=== PATIENT | male | born 1985 | race Caucasian/White ===

== ENCOUNTER 2016-12-08 19:02 | Emergency (ER) | payer BC ==
[2016-12-08 19:11] VITALS: BP 158/89; PULSE 61; RESP 18; TEMP 97.9
--- NOTE | 2016-12-08 20:08 | XR ---
EXAMINATION TYPE: XR hand complete LT DATE OF EXAM: 12/08/2016 7:41 PM COMPARISON: NONE HISTORY: Struck left thumb with a hammer today TECHNIQUE: 3 views FINDINGS: Bones and joints and soft tissues are remarkable only for soft tissue swelling. IMPRESSION: Negative for fracture or malalignment, or radiopaque foreign body
--- NOTE | 2016-12-08 20:37 | ED ---
General Adult HPI - General Chief complaint: Extremity Injury, Upper Stated complaint: Thumb Pain/Injury Time Seen by Provider: 12/08/16 19:27 Source: patient, RN notes reviewed Mode of arrival: ambulatory Limitations: no limitations - History of Present Illness Initial comments: This is a 31-year-old male presents with left thumb pain after hitting it with a hammer today at home. Patient states he noticed pain over the MCP joint of the left thumb. Patient denies any laceration or bruising. Patient states difficult to move the thumb due to pain. Patient denies any numbness/tingling or weakness. Patient denies any recent fever, chills, shortness breath, chest pain, abdominal pain, nausea/vomiting/diarrhea, back pain, hematuria, headache , or visual changes, or any other complaints. - Related Data Home Medications Medication Instructions Recorded Confirmed No Known Home Medications [No 02/15/16 12/08/16 Known Home Medications] Allergies Allergy/AdvReac Type Severity Reaction Status Date / Time codeine Allergy Unknown Verified 12/08/16 19:36 Childhood Review of Systems ROS Statement: Those systems with pertinent positive or pertinent negative responses have been documented in the HPI. ROS Other: All systems not noted in ROS Statement are negative. Past Medical History Past Medical History: No Reported History History of Any Multi-Drug Resistant Organisms: None Reported Past Surgical History: Appendectomy Past Psychological History: Anxiety Smoking Status: Current every day smoker Past Alcohol Use History: Rare Past Drug Use History: None Reported General Exam - General Exam Comments Initial Comments: General: The patient is awake and alert, in no distress, and does not appear acutely ill. Neck: The neck is supple, there is no tenderness or JVD. Cardiovascular: There is a regular rate and rhythm. No murmur, rub or gallop is appreciated. Respiratory: Lungs are clear to auscultation, respirations are non-labored, breath sounds are equal. No wheezes, stridor, rales, or rhonchi. Musculoskeletal: There is tenderness over the MCP joint of the first digit of the left hand. Limited range of motion at the left MCP joint of the first digit due to pain. No ecchymosis, mild swelling around the MCP joint of the first digit of the left hand. There is no tenderness of the left wrist. No subungual hematoma. Strength 5/5 and Sensation intact. Pulses 2+ bilaterally, capillary refill is normal at less than 2 seconds. No tenderness in the anatomical snuffbox. Neurological: A&O x 3. CN II-XII intact, There are no obvious motor or sensory deficits. Coordination appears grossly intact. Speech is normal. Skin: Skin is warm and dry and no rashes or lesions are noted. Psychiatric: Normal mood and affect. Limitations: no limitations Course Vital Signs 12/08/16 19:07 Temperature 97.9 F Pulse Rate 61 Respiratory 18 Rate Blood Pressure 158/89 O2 Sat by Pulse 99 Oximetry Medical Decision Making - Medical Decision Making This is a 31-year-old male presents with left thumb pain after hitting his hand with a hammer. On physical exam There is tenderness over the MCP joint of the first digit of the left hand. Limited range of motion at the left MCP joint of the first digit due to pain. No ecchymosis, mild swelling around the MCP joint of the first digit of the left hand. There is no tenderness of the left wrist. No subungual hematoma. Strength 5/5 and Sensation intact. Pulses 2+ bilaterally, capillary refill is normal at less than 2 seconds. An x-ray of the left hand was done and reviewed showing: Negative for fracture or malalignment, or radiopaque foreign body. Reported by Dr. Wang. I discussed results with patient and his who was also present in the room. Discussed rest, ice, elevate and use Bruno wrap for compression. I discussed over -the-counter Tylenol and or Motrin as needed for any pain. I discussed If symptoms do not improve in the next 7 days repeat x-rays may be needed to rule out occult fracture. I discussed return parameters. Discussed follow-up with the patient's primary care physician in the next 1-2 days or return to the [facility] for any worsening symptoms or for any further concerns. All questions were answered. Patient and his were receptive to this plan and patient will be discharged home. Disposition Clinical Impression: Contusion of thumb, left Disposition: HOME SELF-CARE Condition: Good Instructions: Hand Sprain (ED) Additional Instructions: Please rest, ice, elevate and use Bruno wrap for compression. Please use over-the -counter Tylenol and/or Motrin as needed for any pain. If symptoms do not improve in the next 7 days repeat x-rays may be needed to rule out occult fracture. Please use medication as discussed. Please follow-up with family doctor in the next 2 days of symptoms have not improved. Please return to emergency room if the symptoms increase or worsen or for any other concerns. Time of Disposition: 20:40
== END 2016-12-08 20:46 | disposition home or self-care (01) ==
LOC: EC 19:02
DX: S63.602A Unspecified sprain of left thumb, initial encounter (principal); F17.200 Nicotine dependence, unspecified, uncomplicated; Z88.5 Allergy status to narcotic agent; W22.8XXA Striking against or struck by other objects, initial encounter
CPT/HCPCS: 99283

== ENCOUNTER 2018-03-07 10:05 | Emergency (ER) | payer BC ==
[2018-03-07 10:16] VITALS: RESP 18
--- NOTE | 2018-03-07 10:29 | XR ---
EXAMINATION TYPE: XR chest 2V DATE OF EXAM: 03/07/2018 COMPARISON: Chest x-ray January 19, 2014 HISTORY: Cough and congestion for one week. TECHNIQUE: Frontal and lateral views of the chest are obtained. FINDINGS: There is no focal air space opacity, pleural effusion, or pneumothorax seen. The cardiac silhouette size is within normal limits. The osseous structures are intact. IMPRESSION: No suspicious acute infiltrate. No significant change from prior.
[2018-03-07] MEDS ORDERED: KETOROLAC 60 MG/2 ML VIAL IM STA (10:32)
[2018-03-07] MEDS ORDERED: IPRATROPIUM-ALBUTEROL 3 ML NEB INHALATION STA (10:32)
--- NOTE | 2018-03-07 10:38 | ED ---
General Adult HPI - General Chief complaint: Upper Respiratory Infection Stated complaint: Diff Breathing Time Seen by Provider: 03/07/18 10:05 Source: patient, RN notes reviewed Mode of arrival: wheelchair Limitations: no limitations - History of Present Illness Initial comments: This is a 33-year-old male who presents emergency department stating that he has had upper respiratory infection since last and now is coughing a lot but not producing any sputum. Patient states she's also short of breath. Patient states she's coughing and causing some pain in his back bilaterally. Patient denies any fever chills. Patient states she is a smoker. Patient states he has no anterior chest pain or palpitations. Patient denies any lightheadedness or dizziness. Patient denies any headache patient denies numbness weakness. Patient denies abdominal pain patient denies nausea vomiting or diarrhea. - Related Data Home Medications Medication Instructions Recorded Confirmed Acetaminophen/Diphenhydramine 2 tab PO HS PRN 03/07/18 03/07/18 [Tylenol PM 500-25mg] diphenhydrAMINE HCL [Benadryl] 25 mg PO HS PRN 03/07/18 03/07/18 Previous Rx's Medication Instructions Recorded Albuterol Inhaler [Ventolin Hfa 1 - 2 puff INHALATION Q6HR PRN #2 03/07/18 Inhaler] puff Azithromycin [Zithromax Tri-Mike] 500 mg PO DAILY #3 tab 03/07/18 Ibuprofen [Motrin] 600 mg PO Q6HR PRN #20 tab 03/07/18 Allergies Allergy/AdvReac Type Severity Reaction Status Date / Time codeine Allergy Unknown Verified 03/07/18 10:42 Childhood Review of Systems ROS Statement: Those systems with pertinent positive or pertinent negative responses have been documented in the HPI. ROS Other: All systems not noted in ROS Statement are negative. Past Medical History Past Medical History: No Reported History History of Any Multi-Drug Resistant Organisms: None Reported Past Surgical History: Appendectomy Past Psychological History: Anxiety Smoking Status: Current every day smoker Past Alcohol Use History: Rare Past Drug Use History: None Reported General Exam - General Exam Comments Initial Comments: GENERAL: Patient is well-developed and well-nourished. Patient is nontoxic and well- hydrated and is in mild distress. ENT: Neck is soft and supple. No significant lymphadenopathy is noted. Oropharynx is clear. Moist mucous membranes. Neck has full range of motion without eliciting any pain. EYES: The sclera were anicteric and conjunctiva were pink and moist. Extraocular movements were intact and pupils were equal round and reactive to light. Eyelids were unremarkable. PULMONARY: Extra wheezing diffusely CARDIOVASCULAR: There is a regular rate and rhythm without any murmurs gallops or rubs. ABDOMEN: Soft and nontender with normal bowel sounds. SKIN: Skin is clear with no lesions or rashes and otherwise unremarkable. NEUROLOGIC: Patient is alert and oriented x3. Cranial nerves II through XII are grossly intact. Motor and sensory are also intact. Normal speech, volume and content. Symmetrical smile. MUSCULOSKELETAL: Normal extremities with adequate strength and full range of motion. LYMPHATICS: No significant lymphadenopathy is noted PSYCHIATRIC: Normal psychiatric evaluation. Limitations: no limitations Course Vital Signs 03/07/18 03/07/18 03/07/18 10:14 10:53 11:03 Temperature 98.9 F Pulse Rate 77 76 80 Respiratory 18 Rate Blood Pressure 132/75 O2 Sat by Pulse 97 Oximetry Medical Decision Making - Medical Decision Making Chest shows no acute abnormality. I gave the patient an albuterol treatment in emergency. He felt considerably better. Patient sounded like he was having bronchitis with bronchospasms psychiatric the shot of Rocephin as well and Toradol. Patient states the Toradol really helped his back pain with his coughing. Disposition Clinical Impression: Bronchitis with bronchospasm Disposition: HOME SELF-CARE Condition: Good Instructions: Acute Bronchitis (ED) Prescriptions: Albuterol Inhaler [Ventolin Hfa Inhaler] 1 - 2 puff INHALATION Q6HR PRN #2 puff PRN Reason: Difficulty breathing Azithromycin [Zithromax Tri-Mike] 500 mg PO DAILY #3 tab Ibuprofen [Motrin] 600 mg PO Q6HR PRN #20 tab PRN Reason: For pain Is patient prescribed a controlled substance at d/c from ED?: No Referrals: Bhargav Sosa DO [Primary Care Provider] - 1-2 days Time of Disposition: 11:23
[2018-03-07] MEDS ORDERED: cefTRIAXone 250 MG VIAL IM STA (10:56)
[2018-03-07 12:04] VITALS: BP 129/77; PULSE 85; TEMP 98.7
== END 2018-03-07 12:00 | disposition home or self-care (01) ==
LOC: EC 10:05
DX: J40 Bronchitis, not specified as acute or chronic (principal); J98.01 Acute bronchospasm; F17.200 Nicotine dependence, unspecified, uncomplicated; Z88.5 Allergy status to narcotic agent
CPT/HCPCS: 99283; 96372 ×2; 94640; 71046; J0696; J1885

== ENCOUNTER 2018-09-16 20:50 | Emergency (ER) | payer BC, OTHER ==
[2018-09-16 20:57] VITALS: BP 123/80; PULSE 70; RESP 18; TEMP 97.9
[2018-09-16] MEDS ORDERED: KETOROLAC 30 MG/ML 1 ML VIAL IM STA (21:10)
--- NOTE | 2018-09-16 21:54 | ED ---
Extremity Problem HPI - General Source: patient Mode of arrival: ambulatory Limitations: no limitations <Capri Manning - Last Filed: 09/17/18 00:50> <Lu Escamilla - Last Filed: 09/17/18 02:21> - General Chief complaint: Extremity Problem,Nontraumatic Stated complaint: swollen hand Time Seen by Provider: 09/16/18 20:54 - History of Present Illness Initial comments: 33-year-old male presenting today for chief complaint of left wrist pain x 2 weeks. Patient states left wrist pain began 2 weeks ago felt a hard bump on his ventral surface of the wrist near the base of the thumb. Patient denies any injury, cuts, penetration of the area. 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 She denies any redness, swelling of the hand or arm. Pt states that the wrist is tender with ROM. Pt denies, fever, chills, night sweats. Remainder of ROS (-). Upon arrival pt appears well VS within acceptable limits. (Capri Manning) - Related Data Home Medications Medication Instructions Recorded Confirmed No Known Home Medications 09/16/18 09/16/18 Allergies Allergy/AdvReac Type Severity Reaction Status Date / Time codeine Allergy Unknown Verified 03/07/18 10:42 Childhood Review of Systems ROS Other: All systems not noted in ROS Statement are negative. Constitutional: Denies: fever, chills, night sweats ENT: Denies: ear pain, throat pain Respiratory: Denies: wheezes, hemoptysis, stridor Cardiovascular: Denies: chest pain, palpitations Endocrine: Denies: fatigue Gastrointestinal: Denies: abdominal pain, nausea, vomiting Genitourinary: Denies: urgency, dysuria Musculoskeletal: Reports: arthralgia (left wrist pain). Denies: back pain Skin: Denies: rash, lesions, change in color, pruritus <Capri Manning - Last Filed: 09/17/18 00:50> ROS Other: All systems not noted in ROS Statement are negative. <Lu Escamilla - Last Filed: 09/17/18 02:21> ROS Statement: Those systems with pertinent positive or pertinent negative responses have been documented in the HPI. Past Medical History Past Medical History: No Reported History History of Any Multi-Drug Resistant Organisms: None Reported Past Surgical History: Appendectomy Past Psychological History: Anxiety Smoking Status: Current every day smoker Past Alcohol Use History: Rare Past Drug Use History: None Reported <Capri Manning - Last Filed: 09/17/18 00:50> General Exam Limitations: no limitations <Capri Manning - Last Filed: 09/17/18 00:50> <Lu Escamilla P - Last Filed: 09/17/18 02:21> - General Exam Comments Initial Comments: General: The patient is awake and alert, in no distress, and does not appear acutely ill. Eye: +3 mm pupils are equal, round and reactive to light, extra-ocular movements are intact. No nystagmus. There is normal conjunctiva bilaterally. No signs of icterus. Ears, nose, mouth and throat: There are moist mucous membranes and no oral lesions. Neck: The neck is supple, there is no tenderness or JVD. Cardiovascular: There is a regular rate and rhythm. No murmur, rub or gallop is appreciated. Respiratory: Lungs are clear to auscultation, respirations are non-labored, breath sounds are equal. No wheezes, stridor, rales, or rhonchi. Musculoskeletal: Small hard raised area on the ventral surface of left wrist, no palpable fluctuance, area is tender to palpation and non erythematous. No obvious deformities. No swelling noted of the hands/UE the inspection is equally b/l. Normal ROM of the wrist b/l with flexion/extension/ulnar and radial deviation, pt complains of pain with all movements. (+) Terrie Strength 5/5. Sensation intact, pt is able to make the ok, fingers crossed, thumbs up and flex at the wrist. Radial and ulnar pulses equal bilaterally 2+. No snuffbox tenderness. Neurological: A&O x 3. CN II-XII intact, There are no obvious motor or sensory deficits. Coordination appears grossly intact. Speech is normal. Skin: Skin is warm and dry and no rashes or lesions are noted. No redness/ abscess. Psychiatric: Cooperative, appropriate mood & affect, normal judgment. (Capri Manning Maria Eugenia) Vital Signs 09/16/18 20:53 Temperature 97.9 F Pulse Rate 70 Respiratory 18 Rate Blood Pressure 123/80 O2 Sat by Pulse 97 Oximetry Medical Decision Making <Capri Manning - Last Filed: 09/17/18 00:50> <Lu Escamilla - Last Filed: 09/17/18 02:21> - Medical Decision Making 33yo with atraumatic left wrist pain and palpable mass. US obtained revealing cyst of the ventral surface of the left wrist-performed bedside by Dr. Rodríguez. Does not appear consistent with an infectious abscess or lesion more so with ganglion cyst. PE unremarkable aside from tenderness to palpation, no redness, fluctuance or warmth. Pt neurovascularly intact no pain along the deep venous system. At this time I feel pt symptoms due to ganglion cyst. Pt was given instruction to use ibuprofen and tylenol for pain mgmt and f/u with orthopedic surgery. Case is discussed with Dr. Escamilla who agreed to impression and plan. Return parameters were discussed at length with the patient. Patient verbalizes understanding. Patient was discharged in stable condition. (Capri Manning) I was available for consultation in the emergency department. The history and physical exam were done by the midlevel provider. I was consulted for this patient's care. I reviewed the case with the midlevel provider and based on their presentation of the patient, I agree with the assessment, medical decision making and plan of care as documented. (Lu Escamilla) Disposition Is patient prescribed a controlled substance at d/c from ED?: No Time of Disposition: 21:56 <Capri Manning - Last Filed: 09/17/18 00:50> <Lu Escamilla - Last Filed: 09/17/18 02:21> Clinical Impression: Ganglion cyst, Left wrist pain Disposition: HOME SELF-CARE Condition: Good Instructions: Ganglion Cysts (ED) Additional Instructions: Please use over the counter pain medication as discussed. Please follow-up with family doctor in the next 2 days, please seek orthopedic surgery evaluation in next 2-3 days. Please return to emergency room if the symptoms increase or worsen or for any other concerns, as discussed. Referrals: Bhargav Sosa DO [Primary Care Provider] - 1-2 days Erasmo Roberts DO [Doctor of Osteopathic Medicine] - 1-2 days
== END 2018-09-16 22:11 | disposition home or self-care (01) ==
LOC: EC 20:50
DX: M67.432 Ganglion, left wrist (principal); F17.200 Nicotine dependence, unspecified, uncomplicated; Z88.5 Allergy status to narcotic agent
CPT/HCPCS: 99283; 96372; J1885

== ENCOUNTER 2018-10-30 10:36 | Emergency (ER) | payer BC, OTHER ==
[2018-10-30 10:50] VITALS: RESP 18
[2018-10-30] MEDS ORDERED: SODIUM CHLORIDE 0.9% 1,000 ML IV STA (11:46)
[2018-10-30] MEDS ORDERED: AMPICILLIN-SULBACTAM 3 GM in SODIUM CHLORIDE 0.9% 100 ML IVPB STA (11:49)
--- NOTE | 2018-10-30 11:52 | ED ---
General Adult HPI - General Chief complaint: Dental/Oral Stated complaint: dental abscess Source: patient, RN notes reviewed, old records reviewed Mode of arrival: ambulatory Limitations: no limitations - History of Present Illness Initial comments: 33-year-old male patient past medical history of poor dentition presents to ED with 2 days of right upper tooth pain, 2 days of bilateral facial swelling. Patient reports that he began experiencing tooth pain yesterday. Patient reports that he has had tooth infections in the past. Patient reports that he is unable to see a dentist yesterday due to the holiday. Patient took Motrin for the pain. Patient had a mild amount of facial swelling yesterday. Patient reports that he woke up today and had considerably more facial swelling, bilaterally. Patient denies fever chills, nausea vomiting diarrhea, chest pain , shortness breath, abdominal pain. Systemic: Pt denies fatigue, myalgia, fever/chills, rash. Pt denies weakness, night sweats, weight loss. Neuro: Pt denies headache, visual disturbances, syncope or pre-syncope. HEENT: Patient complains of dental pain, facial swelling. Pt denies ocular discharge or irritation, otalgia, rhinorrhea, pharyngitis or notable lymphadenopathy. Cardiopulmonary: Pt denies chest pain, SOB, heart palpitations, dyspnea on exertion. Abdominal/GI: Pt denies abdominal pain, n/v/d. : Pt denies dysuria, burning w/ urination, frequency/urgency. Denies new onset urinary or bowel incontinence. MSK: Pt denies myalgia, loss of strength or function in extremities. Neuro: Pt denies new onset weakness, paresthesias. - Related Data Home Medications Medication Instructions Recorded Confirmed Ibuprofen [Motrin Ib] 800 mg PO Q6H PRN 10/30/18 10/30/18 Previous Rx's Medication Instructions Recorded Amoxicillin/Potassium Clav 1 each PO Q12HR #20 tab 10/30/18 [Augmentin 875-125 Tablet] Allergies Allergy/AdvReac Type Severity Reaction Status Date / Time codeine Allergy Unknown Verified 10/30/18 12:12 Childhood Review of Systems ROS Statement: Those systems with pertinent positive or pertinent negative responses have been documented in the HPI. ROS Other: All systems not noted in ROS Statement are negative. Past Medical History Past Medical History: No Reported History History of Any Multi-Drug Resistant Organisms: None Reported Past Surgical History: Appendectomy Past Psychological History: Anxiety Smoking Status: Current every day smoker Past Alcohol Use History: Occasional Past Drug Use History: None Reported General Exam - General Exam Comments Initial Comments: Constitutional: NAD, AOX3, Pt has pleasant affect. HEENT: Moderate amount of facial swelling bilaterally, most appriciated in R maxillary area. NC/AT, trachea midline, neck supple, no lymphadenopathy. Posterior pharynx non erythematous, without exudates. External ears appear normal, without discharge. Mucous membranes moist. Eyes PERRLA, EOM intact. There is no scleral icterus. No pallor noted. Tenderness to palpation of teeth # 4,5 - mild amount of erythema, no drainage noted, no abscess. Cardiopulmonary: RRR, no murmurs, rubs or gallops, no JVD noted. Lungs CTAB in anterior and posterior hartley. No peripheral edema. Abdominal exam: Abdomen soft and non-distended. Abdomen non-tender to palpation in all 4 quadrants. Bowel sounds active in LLQ. No hepatosplenomegaly. No ecchymosis Neuro: CN II-XII grossly intact. No nuchal rigidity. MSK: No posterior calf tenderness bilaterally, homans sign negative bilaterally. Posterior tibialis and radial pulse +2 bilaterally. Sensation intact in upper and lower extremities. Full active ROM in upper and lower extremities, 5/5 stregnth. Limitations: no limitations Course Vital Signs 10/30/18 10/30/18 10:47 14:51 Temperature 98.1 F 98.2 F Pulse Rate 74 73 Respiratory 18 18 Rate Blood Pressure 129/84 142/80 O2 Sat by Pulse 97 96 Oximetry Medical Decision Making - Medical Decision Making 33-year-old male patient past medical history of poor dentition presents to ED with 2 days of right upper tooth pain, 2 days of bilateral facial swelling. Patient reports that he began experiencing tooth pain yesterday. Patient reports that he has had tooth infections in the past. Patient reports that he is unable to see a dentist yesterday due to the holiday. Patient took Motrin for the pain. Patient had a mild amount of facial swelling yesterday. Patient reports that he woke up today and had considerably more facial swelling, bilaterally. Patient vital signs stable, afebrile. Physical exam revealed Moderate amount of facial swelling bilaterally, most appriciated in R maxillary area. Tenderness to palpation of teeth #4,5 - mild amount of erythema, no drainage noted, no abscess. A facial CT with contrast displayed a small cell periosteal abscess noted right maxilla with associated right facial soft tissue cellulitis. Patient administered 3 g Unasyn in ED. Patient administered one [place] for analgesic, pt verbalized that he is not driving home. Patient to be discharged with by mouth Augmentin and outpatient follow-up. Patient to follow up with PCP tomorrow. Patient additionally given referral for ENT and to follow up with his primary dentist. Pt verbalized understanding. Pt given strict return precautions. Patient to return to ED if n/v/d, fever/chills develop, if any new symptoms develop, or if condition worsens in anyway. Case discussed and pt seen with Dr. Berrios. - Lab Data Result diagrams: 10/30/18 12:23 10/30/18 12:23 Lab Results 10/30/18 10/30/18 10/30/18 Range/Units 12:23 12:23 12:23 WBC 13.7 H (3.8-10.6) k/uL RBC 5.12 (4.30-5.90) m/uL Hgb 16.9 (13.0-17.5) gm/dL Hct 48.0 (39.0-53.0) % MCV 93.8 (80.0-100.0) fL MCH 33.0 (25.0-35.0) pg MCHC 35.2 (31.0-37.0) g/dL RDW 12.0 (11.5-15.5) % Plt Count 217 (150-450) k/uL Neutrophils % 77 % Lymphocytes % 15 % Monocytes % 5 % Eosinophils % 2 % Basophils % 0 % Neutrophils # 10.5 H (1.3-7.7) k/uL Lymphocytes # 2.1 (1.0-4.8) k/uL Monocytes # 0.7 (0-1.0) k/uL Eosinophils # 0.2 (0-0.7) k/uL Basophils # 0.1 (0-0.2) k/uL Sodium 140 (137-145) mmol/L Potassium 4.4 (3.5-5.1) mmol/L Chloride 108 H (98-107) mmol/L Carbon Dioxide 25 (22-30) mmol/L Anion Gap 7 mmol/L BUN 13 (9-20) mg/dL Creatinine 0.70 (0.66-1.25) mg/dL Est GFR (CKD-EPI)AfAm >90 (>60 ml/min/1.73 sqM) Est GFR (CKD-EPI)NonAf >90 (>60 ml/min/1.73 sqM) Glucose 87 (74-99) mg/dL Plasma Lactic Acid Patrick 1.0 (0.7-2.0) mmol/L Calcium 9.0 (8.4-10.2) mg/dL Total Bilirubin 0.8 (0.2-1.3) mg/dL AST 23 (17-59) U/L ALT 34 (21-72) U/L Alkaline Phosphatase 80 (38-126) U/L Total Protein 6.9 (6.3-8.2) g/dL Albumin 4.0 (3.5-5.0) g/dL Amylase <30 L (30-110) U/L Disposition Clinical Impression: Acute abscess of maxillary sinus Disposition: HOME SELF-CARE Condition: Fair Instructions: Dental Abscess (ED) Additional Instructions: Patient to adhere to previously discussed treatment plan and will take medication(s) as directed. Patient to follow up with PCP in 1-2 days. Patient to return to ED if symptoms do not improve. Prescriptions: Amoxicillin/Potassium Clav [Augmentin 875-125 Tablet] 1 each PO Q12HR #20 tab Is patient prescribed a controlled substance at d/c from ED?: No Referrals: Bhargav Sosa DO [Primary Care Provider] - 1-2 days Eliezer Worrell MD [STAFF PHYSICIAN] - 1-2 days
[2018-10-30 12:39] LABS: Basophils # (A) 0.1 k/uL (0-0.2); Basophils % (A) 0 %; Eosinophils # (A) 0.2 k/uL (0-0.7); Eosinophils % (A) 2 %; HGB 16.9 gm/dL (13.0-17.5); Lymphocytes # (A) 2.1 k/uL (1.0-4.8); Lymphocytes % (A) 15 %; MCHC 35.2 g/dL (31.0-37.0); MCV 93.8 fL (80.0-100.0); Mean Platelet Volume 6.8; Monocytes # (A) 0.7 k/uL (0-1.0); Monocytes % (A) 5 %; Neutrophils # (A) 10.5 k/uL (1.3-7.7); Neutrophils % (A) 77 %; Platelet Count 217 k/uL (150-450); RBC 5.12 m/uL (4.30-5.90); WBC 13.7 k/uL (3.8-10.6)
[2018-10-30 12:45] LABS: ALT 34 U/L (21-72); AST 23 U/L (17-59); Alkaline Phosphatase 80 U/L (38-126); Amylase <30 U/L (30-110); Anion Gap 7 mmol/L; Blood Urea Nitrogen 13 mg/dL (9-20); Carbon Dioxide 25 mmol/L (22-30); Chloride 108 mmol/L (98-107); Glucose 87 mg/dL (74-99); Potassium 4.4 mmol/L (3.5-5.1); Sodium 140 mmol/L (137-145); Total Bilirubin 0.8 mg/dL (0.2-1.3); Total Protein 6.9 g/dL (6.3-8.2)
--- NOTE | 2018-10-30 12:58 | CT ---
EXAMINATION TYPE: CT facial bones w con DATE OF EXAM: 10/30/2018 COMPARISON: None HISTORY: Swelling to Rt side of face, dental abscess CT DLP: 628.2 mGycm Automated exposure control for dose reduction was used. CONTRAST: CT scan of the facial bones is performed with IV Contrast, patient injected with 100 mL of Isovue 300 . TECHNIQUE: CT scan of the sinuses is performed without contrast, axial images are obtained, coronal r eformatted images are also reviewed. FINDINGS: There is extensive right facial soft tissue cellulitis. There is a small subperiosteal abscess noted right maxilla measuring 7.1 mm with small osseous erosion noted. This is in the region of the right f irst upper premolar. No additional abscesses identified. Incidentally there is mild mucosal thickening right maxillary sinus. Osseous structures are otherwise intact. IMPRESSION: 1. Small subperiosteal abscess noted right maxilla as discussed above with associated right facial s oft tissue cellulitis.
[2018-10-30] MEDS ORDERED: KETOROLAC 60 MG/2 ML VIAL IM STA (13:26)
[2018-10-30] MEDS ORDERED: HYDROcodone/APAP 5-325MG 1 EACH TAB PO STA (14:34)
[2018-10-30] MEDS ORDERED: ACET/COD 300 MG/30 MG STARTER PACK 6 TAB BTL PO STA (14:34)
[2018-10-30 14:52] VITALS: BP 142/80; PULSE 73; TEMP 98.2
== END 2018-10-30 14:51 | disposition home or self-care (01) ==
LOC: EC 10:36
DX: J01.00 Acute maxillary sinusitis, unspecified (principal); F17.200 Nicotine dependence, unspecified, uncomplicated; Z88.5 Allergy status to narcotic agent
CPT/HCPCS: 36415; 80053; 82150; 83605; 85025; 87040; 70487; 99284; 96365; 96361; J0295; Q9967

== ENCOUNTER 2019-07-30 19:25 | Emergency (ER) | payer OTHER ==
[2019-07-30 20:39] VITALS: BP 125/84; PULSE 86; RESP 18; TEMP 98.3
--- NOTE | 2019-07-30 21:21 | ED ---
Abdominal Pain HPI - General Chief Complaint: Abdominal Pain Stated Complaint: Chest pain, SOB Time Seen by Provider: 07/30/19 21:20 Source: patient Mode of arrival: ambulatory Limitations: no limitations - Related Data Home Medications Medication Instructions Recorded Confirmed No Known Home Medications 07/30/19 07/30/19 Allergies Allergy/AdvReac Type Severity Reaction Status Date / Time No Known Allergies Allergy Verified 07/30/19 21:04 Review of Systems ROS Statement: Those systems with pertinent positive or pertinent negative responses have been documented in the HPI. ROS Other: All systems not noted in ROS Statement are negative. Past Medical History Past Medical History: No Reported History History of Any Multi-Drug Resistant Organisms: None Reported Past Surgical History: Appendectomy Past Psychological History: Anxiety Smoking Status: Current every day smoker Past Alcohol Use History: Occasional Past Drug Use History: None Reported General Exam Limitations: no limitations Course Vital Signs 07/30/19 07/30/19 20:37 21:17 Temperature 98.3 F Pulse Rate 86 Respiratory 18 18 Rate Blood Pressure 125/84 O2 Sat by Pulse 97 Oximetry Medical Decision Making - Medical Decision Making Patient was placed in a room and registered, I attempted to see the patient who was completing his registration paperwork. Patient was sitting up in bed in no acute distress, completing paperwork. I advised I would return shortly for evaluation. Patient then chose to get up and walk out of the ER as he no longer wanted to wait for evaluation. History and Physical were not completed prior to patient walking out of ER. Disposition Clinical Impression: Abdominal pain Disposition: Left Against Medical Advice Is patient prescribed a controlled substance at d/c from ED?: No Referrals: Bhargav Sosa DO [Primary Care Provider] - 1-2 days
== END 2019-07-30 21:40 | disposition left against medical advice (07) ==
LOC: EC 19:25
DX: R10.9 Unspecified abdominal pain (principal); R07.9 Chest pain, unspecified; R06.02 Shortness of breath; F17.200 Nicotine dependence, unspecified, uncomplicated; Z90.49 Acquired absence of other specified parts of digestive tract; Z53.21 Procedure and treatment not carried out due to patient leaving prior to being seen by health care provider
CPT/HCPCS: 99499

== ENCOUNTER 2019-08-28 12:06 | Emergency (ER) | payer OTHER ==
[2019-08-28 12:52] LABS: Basophils # (A) 0.1 k/uL (0-0.2); Basophils % (A) 1 %; Eosinophils # (A) 0.1 k/uL (0-0.7); Eosinophils % (A) 1 %; HCT 46.4 % (39.0-53.0); HGB 16.5 gm/dL (13.0-17.5); Lymphocytes % (A) 15 %; MCH 32.8 pg (25.0-35.0); MCHC 35.7 g/dL (31.0-37.0); MCV 91.9 fL (80.0-100.0); Mean Platelet Volume 6.4; Monocytes # (A) 0.5 k/uL (0-1.0); Monocytes % (A) 3 %; Neutrophils # (A) 11.2 k/uL (1.3-7.7); Neutrophils % (A) 79 %; Platelet Count 300 k/uL (150-450); RBC 5.04 m/uL (4.30-5.90); RDW 11.6 % (11.5-15.5); WBC 14.1 k/uL (3.8-10.6)
[2019-08-28 12:59] LABS: ALT 34 U/L (21-72); AST 26 U/L (17-59); African American GFR (CKD) >90 (>60 ml/min/1.73 sqM); Albumin 4.4 g/dL (3.5-5.0); Alkaline Phosphatase 87 U/L (38-126); Anion Gap 9 mmol/L; Blood Urea Nitrogen 12 mg/dL (9-20); Calcium 9.3 mg/dL (8.4-10.2); Carbon Dioxide 22 mmol/L (22-30); Chloride 107 mmol/L (98-107); Glucose 96 mg/dL (74-99); Potassium 4.2 mmol/L (3.5-5.1); Sodium 138 mmol/L (137-145); Total Bilirubin 0.5 mg/dL (0.2-1.3); Total Protein 7.5 g/dL (6.3-8.2)
[2019-08-28] MEDS ORDERED: ONDANSETRON 4 MG/2 ML VIAL IVP STA (12:59)
[2019-08-28] MEDS ORDERED: SODIUM CHLORIDE 0.9% 1,000 ML IV ONE (12:59)
[2019-08-28 13:06] LABS: INR 0.9 (<1.2); Partial Thromboplastin Time 28.9 sec (22.0-30.0); Prothrombin Time 10.2 sec (9.0-12.0)
[2019-08-28 14:02] LABS: Appearance,Urine Clear (Clear); Bilirubin,Urine Negative (Negative); Blood,Urine Negative (Negative); Color,Urine Yellow; Glucose,Urine (UA) Negative (Negative); Ketones,Urine Negative (Negative); Leukocyte Esterase,Urine Negative (Negative); Nitrite,Urine Negative (Negative); Protein,Urine Negative (Negative); Specific Gravity,Urine 1.021 (1.001-1.035); Urobilinogen,Urine <2.0 mg/dL (<2.0)
--- NOTE | 2019-08-28 14:38 | ED ---
General Adult HPI - General Chief complaint: Chest Pain Stated complaint: chest pain Time Seen by Provider: 08/28/19 12:10 Source: patient Mode of arrival: wheelchair Limitations: no limitations - History of Present Illness Initial comments: The patient is a 34-year-old male who presents to the emergency room with reported chest palpitations and weakness. He states the symptoms have been going on for the past month. Reports feeling easily fatigued throughout the day and short of breath even at rest. He states he will have episodes of palpitation and nausea. Denies that it is related to food intake. Does have associated left-sided chest discomfort which is located in the subxiphoid area and it is tender to palpate this area. He denies any vomiting. Denies pleuritic chest pain and no ripping or tearing sensation to his back. No family history of dissection or aneurysm. No history of diabetes. She dysuria and increased frequency of urination. Denies diarrhea, constipation, melanotic stools or hematochezia. Patient states that his father had 2 strokes and this is what he is mainly concerned for. He was seen at [facility] 2 weeks ago. He did have abnormal cells in his urine and was concerned about this however he was not treated for anything. There are no other alleviating, precipitating or modifying factors - Related Data Home Medications Medication Instructions Recorded Confirmed No Known Home Medications 07/30/19 08/28/19 Allergies Allergy/AdvReac Type Severity Reaction Status Date / Time No Known Allergies Allergy Verified 08/28/19 12:23 Review of Systems ROS Statement: Those systems with pertinent positive or pertinent negative responses have been documented in the HPI. ROS Other: All systems not noted in ROS Statement are negative. Past Medical History Past Medical History: No Reported History History of Any Multi-Drug Resistant Organisms: None Reported Past Surgical History: Appendectomy Past Psychological History: Anxiety Smoking Status: Current every day smoker Past Alcohol Use History: Occasional Past Drug Use History: Marijuana General Exam Limitations: no limitations General appearance: alert, in no apparent distress Head exam: Present: atraumatic, normocephalic, normal inspection Eye exam: Present: normal appearance, PERRL, EOMI. Absent: scleral icterus, conjunctival injection, periorbital swelling ENT exam: Present: normal exam, mucous membranes moist Neck exam: Present: normal inspection. Absent: tenderness, meningismus, lymphadenopathy Respiratory exam: Present: normal lung sounds bilaterally. Absent: respiratory distress, wheezes, rales, rhonchi, stridor Cardiovascular Exam: Present: regular rate, normal rhythm, normal heart sounds. Absent: systolic murmur, diastolic murmur, rubs, gallop, clicks GI/Abdominal exam: Present: soft, normal bowel sounds. Absent: distended, tenderness, guarding, rebound, rigid Extremities exam: Present: normal inspection, full ROM, normal capillary refill. Absent: tenderness, pedal edema, joint swelling, calf tenderness Back exam: Present: normal inspection Neurological exam: Present: alert, oriented X3, CN II-XII intact Psychiatric exam: Present: normal affect, normal mood Skin exam: Present: warm, dry, intact, normal color. Absent: rash Course Vital Signs 08/28/19 08/28/19 08/28/19 12:08 13:19 14:43 Temperature 97.5 F L Pulse Rate 75 56 L 60 Respiratory 18 16 18 Rate Blood Pressure 127/77 122/91 131/80 O2 Sat by Pulse 98 97 98 Oximetry 08/28/19 15:29 Temperature 98.1 F Pulse Rate 60 Respiratory 18 Rate Blood Pressure 135/77 O2 Sat by Pulse 97 Oximetry Medical Decision Making - Medical Decision Making Arrival the patient was placed into room 27. A history and physical exam was performed. EKG was performed which demonstrates a normal sinus rhythm. Laboratory studies demonstrate a white blood cell count of 14.1. D-dimer is negative at 0.17. CMP is unremarkable. Urinalysis demonstrates no blood or white blood cells. Chest x-ray is performed and demonstrates no acute cardiopulmonary. I discussed these results with the patient. I did discuss the diagnosis, differential and treatment options. I recommended the patient follow up his primary care physician for further dilation to include an echo, Holter monitoring, carotid Dopplers and possible endoscopy. The patient is a follow-up appointment with his PCP tomorrow. He has any new or worsening symptoms he should return to the emergency room. Patient was then discharged with stable condition - Lab Data Result diagrams: 08/28/19 12:20 08/28/19 12:20 Lab Results 08/28/19 08/28/19 08/28/19 Range/Units 12:20 12:20 12:20 WBC 14.1 H (3.8-10.6) k/uL RBC 5.04 (4.30-5.90) m/uL Hgb 16.5 (13.0-17.5) gm/dL Hct 46.4 (39.0-53.0) % MCV 91.9 (80.0-100.0) fL MCH 32.8 (25.0-35.0) pg MCHC 35.7 (31.0-37.0) g/dL RDW 11.6 (11.5-15.5) % Plt Count 300 (150-450) k/uL Neutrophils % 79 % Lymphocytes % 15 % Monocytes % 3 % Eosinophils % 1 % Basophils % 1 % Neutrophils # 11.2 H (1.3-7.7) k/uL Lymphocytes # 2.0 (1.0-4.8) k/uL Monocytes # 0.5 (0-1.0) k/uL Eosinophils # 0.1 (0-0.7) k/uL Basophils # 0.1 (0-0.2) k/uL PT 10.2 (9.0-12.0) sec INR 0.9 (<1.2) APTT 28.9 (22.0-30.0) sec D-Dimer (<0.60) mg/L FEU Sodium 138 (137-145) mmol/L Potassium 4.2 (3.5-5.1) mmol/L Chloride 107 (98-107) mmol/L Carbon Dioxide 22 (22-30) mmol/L Anion Gap 9 mmol/L BUN 12 (9-20) mg/dL Creatinine 0.80 (0.66-1.25) mg/dL Est GFR (CKD-EPI)AfAm >90 (>60 ml/min/1.73 sqM) Est GFR (CKD-EPI)NonAf >90 (>60 ml/min/1.73 sqM) Glucose 96 (74-99) mg/dL Calcium 9.3 (8.4-10.2) mg/dL Total Bilirubin 0.5 (0.2-1.3) mg/dL AST 26 (17-59) U/L ALT 34 (21-72) U/L Alkaline Phosphatase 87 (38-126) U/L Troponin I (0.000-0.034) ng/mL Total Protein 7.5 (6.3-8.2) g/dL Albumin 4.4 (3.5-5.0) g/dL Lipase (23-300) U/L TSH (0.465-4.680) mIU/L Urine Color Urine Appearance (Clear) Urine pH (5.0-8.0) Ur Specific [place] (1.001-1.035) Urine Protein (Negative) Urine Glucose (UA) (Negative) Urine Ketones (Negative) Urine Blood (Negative) Urine Nitrite (Negative) Urine Bilirubin (Negative) Urine Urobilinogen (<2.0) mg/dL Ur Leukocyte Esterase (Negative) 08/28/19 08/28/19 08/28/19 Range/Units 12:20 12:20 12:20 WBC (3.8-10.6) k/uL RBC (4.30-5.90) m/uL Hgb (13.0-17.5) gm/dL Hct (39.0-53.0) % MCV (80.0-100.0) fL MCH (25.0-35.0) pg MCHC (31.0-37.0) g/dL RDW (11.5-15.5) % Plt Count (150-450) k/uL Neutrophils % % Lymphocytes % % Monocytes % % Eosinophils % % Basophils % % Neutrophils # (1.3-7.7) k/uL Lymphocytes # (1.0-4.8) k/uL Monocytes # (0-1.0) k/uL Eosinophils # (0-0.7) k/uL Basophils # (0-0.2) k/uL PT (9.0-12.0) sec INR (<1.2) APTT (22.0-30.0) sec D-Dimer <0.17 (<0.60) mg/L FEU Sodium (137-145) mmol/L Potassium (3.5-5.1) mmol/L Chloride (98-107) mmol/L Carbon Dioxide (22-30) mmol/L Anion Gap mmol/L BUN (9-20) mg/dL Creatinine (0.66-1.25) mg/dL Est GFR (CKD-EPI)AfAm (>60 ml/min/1.73 sqM) Est GFR (CKD-EPI)NonAf (>60 ml/min/1.73 sqM) Glucose (74-99) mg/dL Calcium (8.4-10.2) mg/dL Total Bilirubin (0.2-1.3) mg/dL AST (17-59) U/L ALT (21-72) U/L Alkaline Phosphatase (38-126) U/L Troponin I <0.012 (0.000-0.034) ng/mL Total Protein (6.3-8.2) g/dL Albumin (3.5-5.0) g/dL Lipase 42 (23-300) U/L TSH 1.340 (0.465-4.680) mIU/L Urine Color Urine Appearance (Clear) Urine pH (5.0-8.0) Ur Specific [place] (1.001-1.035) Urine Protein (Negative) Urine Glucose (UA) (Negative) Urine Ketones (Negative) Urine Blood (Negative) Urine Nitrite (Negative) Urine Bilirubin (Negative) Urine Urobilinogen (<2.0) mg/dL Ur Leukocyte Esterase (Negative) 08/28/19 Range/Units 13:40 WBC (3.8-10.6) k/uL RBC (4.30-5.90) m/uL Hgb (13.0-17.5) gm/dL Hct (39.0-53.0) % MCV (80.0-100.0) fL MCH (25.0-35.0) pg MCHC (31.0-37.0) g/dL RDW (11.5-15.5) % Plt Count (150-450) k/uL Neutrophils % % Lymphocytes % % Monocytes % % Eosinophils % % Basophils % % Neutrophils # (1.3-7.7) k/uL Lymphocytes # (1.0-4.8) k/uL Monocytes # (0-1.0) k/uL Eosinophils # (0-0.7) k/uL Basophils # (0-0.2) k/uL PT (9.0-12.0) sec INR (<1.2) APTT (22.0-30.0) sec D-Dimer (<0.60) mg/L FEU Sodium (137-145) mmol/L Potassium (3.5-5.1) mmol/L Chloride (98-107) mmol/L Carbon Dioxide (22-30) mmol/L Anion Gap mmol/L BUN (9-20) mg/dL Creatinine (0.66-1.25) mg/dL Est GFR (CKD-EPI)AfAm (>60 ml/min/1.73 sqM) Est GFR (CKD-EPI)NonAf (>60 ml/min/1.73 sqM) Glucose (74-99) mg/dL Calcium (8.4-10.2) mg/dL Total Bilirubin (0.2-1.3) mg/dL AST (17-59) U/L ALT (21-72) U/L Alkaline Phosphatase (38-126) U/L Troponin I (0.000-0.034) ng/mL Total Protein (6.3-8.2) g/dL Albumin (3.5-5.0) g/dL Lipase (23-300) U/L TSH (0.465-4.680) mIU/L Urine Color Yellow Urine Appearance Clear (Clear) Urine pH 7.0 (5.0-8.0) Ur Specific [place] 1.021 (1.001-1.035) Urine Protein Negative (Negative) Urine Glucose (UA) Negative (Negative) Urine Ketones Negative (Negative) Urine Blood Negative (Negative) Urine Nitrite Negative (Negative) Urine Bilirubin Negative (Negative) Urine Urobilinogen <2.0 (<2.0) mg/dL Ur Leukocyte Esterase Negative (Negative) - EKG Data EKG Comments: EKG demonstrates a normal sinus rhythm with a ventricular rate of 63. MT interval 136. QRS nature. QTC 390. There is a Q-wave in lead [address] and 3[address] No acute ST segment elevations or depressions concerning for schema change. No signs of upper can sweat or Brugada syndrome. Disposition Clinical Impression: Palpitations Disposition: HOME SELF-CARE Condition: Stable Instructions (If sedation given, give patient instructions): Heart Palpitations (ED) Additional Instructions: Please follow-up with your primary care doctor your scheduled appointment tomorrow. You may benefit from having an EGD, carotid Dopplers, echo and Holter monitoring. Return to the emergency room for any new or worsening symptoms Is patient prescribed a controlled substance at d/c from ED?: No Referrals: Bhargav Sosa DO [Primary Care Provider] - 1-2 days Time of Disposition: 14:45
--- NOTE | 2019-08-28 14:40 | XR ---
EXAMINATION TYPE: XR chest 2V DATE OF EXAM: 08/28/2019 COMPARISON: 03/07/2018 HISTORY: Shortness of breath and intermittent left-sided chest pain TECHNIQUE: Frontal and lateral views of the chest are obtained. FINDINGS: There is no focal air space opacity, pleural effusion, or pneumothorax seen. Eventration of the right hemidiaphragm and slightly of the left hemidiaphragm are chronic. The cardiac silhouette size is within normal limits. The osseous structures are intact. IMPRESSION: No acute cardiopulmonary process.
[2019-08-28 14:44] VITALS: PULSE 60; RESP 18
[2019-08-28 15:30] VITALS: BP 135/77; TEMP 98.1
== END 2019-08-28 15:29 | disposition home or self-care (01) ==
LOC: EC 12:06
DX: R00.2 Palpitations (principal); R53.1 Weakness; R53.83 Other fatigue; R06.02 Shortness of breath; R11.0 Nausea; R07.89 Other chest pain; R35.0 Frequency of micturition; R30.0 Dysuria; F17.200 Nicotine dependence, unspecified, uncomplicated; Z90.49 Acquired absence of other specified parts of digestive tract; Z82.49 Family history of ischemic heart disease and other diseases of the circulatory system
CPT/HCPCS: 99285; 96374; 96361; 36415; 93005; 85379; 80053; 84443; 83690; 84484; 85025; 85610; 85730; 81003; 71046; J2405

== ENCOUNTER 2020-02-24 17:19 | Emergency (ER) | payer OTHER ==
[2020-02-24 17:28] VITALS: BP 130/77; PULSE 76; RESP 18; TEMP 98.5
[2020-02-24] MEDS ORDERED: KETOROLAC 30 MG/ML 1 ML VIAL IM STA (17:47)
[2020-02-24] MEDS ORDERED: LIDOCAINE 5% PATCH TOPICAL STA (17:47)
--- NOTE | 2020-02-24 17:51 | ED ---
Back Pain HPI - General Chief Complaint: Back Pain/Injury Stated Complaint: back pain Time Seen by Provider: 02/24/20 17:30 Source: patient Limitations: no limitations - History of Present Illness Initial Comments: 35-year-old male patient presents to the emergency department today for evaluation of increased low back pain. Patient states that he has been having pain for quite some time now however it is worsened over the last 2-3 days. Patient states the pain is mostly located in the left lower back. States he occasionally has some pain and tingling in the right leg. Denies any loss of bowel or bladder control. Denies any saddle anesthesia. Patient denies any injury to the back. Denies any current or previous use of IV drugs. Denies fever or chills. Denies any abdominal pain. Denies any hematuria, dysuria, urinary urgency, urinary frequency. Patient states he has no other medical conditions and does not take medication. States he has been taking Motrin w ithout relief. Patient denies any recent rash, cough, shortness of breath, chest pain, nausea, vomiting, diarrhea, constipation, dizziness, weakness, headache, visual changes, or any other complaints. - Related Data Previous Rx's Medication Instructions Recorded Diazepam [Valium] 5 mg PO TID PRN 3 Days #9 tab 02/24/20 Lidocaine 5% Patch [Lidoderm] 1 patch TOPICAL DAILY #30 patch 02/24/20 Naproxen [EC-Naprosyn] 500 mg PO BID PRN #30 tablet. 02/24/20 Allergies Allergy/AdvReac Type Severity Reaction Status Date / Time No Known Allergies Allergy Verified 02/24/20 17:28 Review of Systems ROS Statement: Those systems with pertinent positive or pertinent negative responses have been documented in the HPI. ROS Other: All systems not noted in ROS Statement are negative. Past Medical History Past Medical History: No Reported History Additional Past Medical History / Comment(s): back pain History of Any Multi-Drug Resistant Organisms: None Reported Past Surgical History: Appendectomy, Cholecystectomy Past Psychological History: Anxiety Smoking Status: Current every day smoker Past Alcohol Use History: Occasional Past Drug Use History: Marijuana General Exam Limitations: no limitations General appearance: alert, in no apparent distress, other (This is a well- developed, well-nourished adult male patient in no acute distress. Vital signs upon presentation are temperature 98.5F, pulse 76, respirations 18, blood pressure 130/77, pulse ox 96% on room air.) Eye exam: Present: normal appearance, PERRL, EOMI. Absent: scleral icterus, conjunctival injection, periorbital swelling ENT exam: Present: normal exam, normal oropharynx, mucous membranes moist Respiratory exam: Present: normal lung sounds bilaterally. Absent: respiratory distress, wheezes, rales, rhonchi, stridor Cardiovascular Exam: Present: regular rate, normal rhythm, normal heart sounds. Absent: systolic murmur, diastolic murmur, rubs, gallop, clicks GI/Abdominal exam: Present: soft, normal bowel sounds. Absent: distended, tenderness, guarding, rebound, rigid Extremities exam: Present: normal inspection, full ROM, normal capillary refill, other (Skin to the lower extremities is pink, warm, dry. Cap refills less than 3 seconds. Pedal and posttibial pulses are 2+ and equal bilaterally.). Absent: tenderness, pedal edema, joint swelling, calf tenderness Back exam: Present: normal inspection, paraspinal tenderness (Left lumbar). Absent: vertebral tenderness Neurological exam: Present: alert, oriented X3, CN II-XII intact Psychiatric exam: Present: normal affect, normal mood Skin exam: Present: warm, dry, intact, normal color. Absent: rash Course Vital Signs 02/24/20 17:25 Temperature 98.5 F Pulse Rate 76 Respiratory 18 Rate Blood Pressure 130/77 O2 Sat by Pulse 96 Oximetry Medical Decision Making - Medical Decision Making 35-year-old male patient presented to the emergency department today for evaluation of increased low back pain. Patient denies any injury. He has no concerning symptoms for cauda equina. Physical examination is unremarkable. He is neurologically intact with no focal deficits. He has good sensation to the legs. Good strength in the bilateral lower extremities. Neurovascular status is intact. Without injury there is no need for x-rays at this time. We will treat for muscle spasm with anti-inflammatories, muscle relaxer, and Lidoderm patch. He is instructed to perform gentle range of motion exercises and to avoid prolonged sitting or lying. He is instructed to follow-up with his primary care physician for recheck in 1-2 days. Return parameters were di scussed in detail. He verbalizes understanding and agrees with this plan. Disposition Clinical Impression: Acute low back pain, Muscle spasm Disposition: HOME SELF-CARE Condition: Good Instructions (If sedation given, give patient instructions): Acute Low Back Pain (ED), Muscle Spasm (ED) Additional Instructions: Take medications as directed. Apply warm moist heat to the low back. Perform gentle range of motion exercises. Avoid sitting or lying for long periods of time, change positions frequently, and walk around at least once per hour. Follow up with your primary care physician for recheck as soon as possible. Return to the emergency department immediately if you have any new, worsening, or concerning symptoms. Prescriptions: Naproxen [EC-Naprosyn] 500 mg PO BID PRN #30 tablet.dr PRN Reason: Pain Lidocaine 5% Patch [Lidoderm] 1 patch TOPICAL DAILY #30 patch Diazepam [Valium] 5 mg PO TID PRN 3 Days #9 tab PRN Reason: Muscle Spasm Is patient prescribed a controlled substance at d/c from ED?: No Referrals: Bhargav Sosa DO [Primary Care Provider] - 1-2 days Time of Disposition: 17:51
== END 2020-02-24 18:08 | disposition home or self-care (01) ==
LOC: EC 17:19
DX: M62.838 Other muscle spasm (principal); M54.5 Low back pain; F17.200 Nicotine dependence, unspecified, uncomplicated
CPT/HCPCS: 96372; 99283; J1885

== ENCOUNTER → 2020-09-10 | Outpatient (CLI) | payer OTHER | END | disposition home or self-care (01) | LOC: LABWHC1 13:45 | PROVIDERS: ATTEND Nurse Practitioner Family | DX: Z20.828 Contact with and (suspected) exposure to other viral communicable diseases (principal) | CPT/HCPCS: U0003; C9803 ==

== ENCOUNTER 2020-09-13 12:15 | Emergency (ER) | payer OTHER ==
--- NOTE | 2020-09-13 13:05 | ED ---
General Adult HPI - General Chief complaint: Shortness of Breath Stated complaint: SOB Time Seen by Provider: 09/13/20 12:25 Source: patient, RN notes reviewed, old records reviewed Mode of arrival: ambulatory Limitations: no limitations - History of Present Illness Initial comments: This is a 35-year-old male who presents emergency department stating that he had a fever on and Monday. Patient states she was checked for cold at that time but the results of yet to come back. Patient states he has myalgias in his back and he states he feels as though is more short of breath than normal. Patient denies any chest pain or palpitations. Patient denies any loss of days. Patient denies any nausea vomiting diarrhea. Patient states he hasn't had a fever since Monday. - Related Data Previous Rx's Medication Instructions Recorded Diazepam [Valium] 5 mg PO TID PRN 3 Days #9 tab 02/24/20 Lidocaine 5% Patch [Lidoderm] 1 patch TOPICAL DAILY #30 patch 02/24/20 Naproxen [EC-Naprosyn] 500 mg PO BID PRN #30 tablet. 02/24/20 Allergies Allergy/AdvReac Type Severity Reaction Status Date / Time No Known Allergies Allergy Verified 09/13/20 12:22 Review of Systems ROS Statement: Those systems with pertinent positive or pertinent negative responses have been documented in the HPI. ROS Other: All systems not noted in ROS Statement are negative. Past Medical History Past Medical History: No Reported History Additional Past Medical History / Comment(s): back pain History of Any Multi-Drug Resistant Organisms: None Reported Past Surgical History: Appendectomy, Cholecystectomy Past Psychological History: Anxiety Smoking Status: Current every day smoker Past Alcohol Use History: Occasional Past Drug Use History: Marijuana General Exam - General Exam Comments Initial Comments: GENERAL: Patient is well-developed and well-nourished. Patient is nontoxic and well- hydrated and is in no acute distress. ENT: Neck is soft and supple. No significant lymphadenopathy is noted. Oropharynx is clear. Moist mucous membranes. Neck has full range of motion without eliciting any pain. EYES: The sclera were anicteric and conjunctiva were pink and moist. Extraocular movements were intact and pupils were equal round and reactive to light. Eyelids were unremarkable. PULMONARY: Unlabored respirations. Good breath sounds bilaterally. No audible rales rhonchi or wheezing was noted. CARDIOVASCULAR: There is a regular rate and rhythm without any murmurs gallops or rubs. ABDOMEN: Soft and nontender with normal bowel sounds. SKIN: Skin is clear with no lesions or rashes and otherwise unremarkable. NEUROLOGIC: Patient is alert and oriented x3. Cranial nerves II through XII are grossly intact. Motor and sensory are also intact. Normal speech, volume and content. Symmetrical smile. MUSCULOSKELETAL: Normal extremities with adequate strength and full range of motion. No lower extremity swelling or edema. No calf tenderness. LYMPHATICS: No significant lymphadenopathy is noted PSYCHIATRIC: Patient appears mildly anxious Limitations: no limitations Course Vital Signs 09/13/20 09/13/20 12:22 13:05 Temperature 97.8 F Pulse Rate 80 Respiratory 20 20 Rate Blood Pressure 141/81 O2 Sat by Pulse 98 Oximetry Medical Decision Making - Medical Decision Making Influenza was negative. Chest x-ray was negative. Patient and later on the emergency department and remained 98% pulse ox. Patient will follow-up the primary medical care doctor. - Lab Data Lab Results 09/13/20 Range/Units 13:05 Influenza Type A RNA Not Detected (Not Detectd) Influenza Type B (PCR) Not Detected (Not Detectd) Disposition Clinical Impression: Upper respiratory infection Disposition: HOME SELF-CARE Instructions (If sedation given, give patient instructions): Upper Respiratory Infection (ED) Is patient prescribed a controlled substance at d/c from ED?: No Referrals: Bhargav Sosa DO [Primary Care Provider] - 1-2 days Time of Disposition: 13:32
--- NOTE | 2020-09-13 13:13 | XR ---
EXAMINATION TYPE: XR chest 2V DATE OF EXAM: 09/13/2020 COMPARISON: 08/28/2019 HISTORY: Chest pain TECHNIQUE: Frontal and lateral views of the chest are obtained. FINDINGS: There is no focal air space opacity. No evidence for pneumothorax. No pleural effusion. The cardiac silhouette size is within normal limits. The osseous structures are grossly intact. IMPRESSION: 1. No acute cardiopulmonary process.
[2020-09-13 13:55] VITALS: BP 119/74; PULSE 79; RESP 18; TEMP 98.4
== END 2020-09-13 13:55 | disposition home or self-care (01) ==
LOC: EC 12:15
DX: J06.9 Acute upper respiratory infection, unspecified (principal); F17.200 Nicotine dependence, unspecified, uncomplicated
CPT/HCPCS: 71046; 87502; 99285

== ENCOUNTER 2021-02-22 15:13 | Emergency (ER) | payer OTHER ==
[2021-02-22] MEDS ORDERED: KETOROLAC 15 MG/ML 1 ML VIAL IM STA (16:00)
[2021-02-22] MEDS ORDERED: ACET/COD 300 MG/30 MG STARTER PACK 6 TAB BTL PO STA (16:00)
--- NOTE | 2021-02-22 16:00 | ED ---
Back Pain HPI - General Chief Complaint: Back Pain/Injury Stated Complaint: Back pain Time Seen by Provider: 02/22/21 15:36 Source: patient Limitations: no limitations - History of Present Illness Initial Comments: Patient is a 36-year-old male presenting to the emergency Department with complaints of left lower back pain for the past 2 days. Patient states he woke up 2 days ago with that feeling sore over the past 2 days with progressive getting worse. He describes it as the left lower side, sometimes radiates pain into his left glut. Denies any numbness and tingling, no saddle paresthesias, no bowel or bladder incontinence. He denies any recent fever or chills, no falls or injuries. No previous surgeries on his back. He has been trying to take Tylenol or Motrin for discomfort but it does not seem to be helping. He has no further complaints at this time. - Related Data Previous Rx's Medication Instructions Recorded Diazepam [Valium] 5 mg PO TID PRN 3 Days #9 tab 02/24/20 Lidocaine 5% Patch [Lidoderm] 1 patch TOPICAL DAILY #30 patch 02/24/20 Naproxen [EC-Naprosyn] 500 mg PO BID PRN #30 tablet. 02/24/20 Cyclobenzaprine [Flexeril] 5 mg PO BID #10 tablet 02/22/21 predniSONE 50 mg PO DAILY #5 tab 02/22/21 Allergies Allergy/AdvReac Type Severity Reaction Status Date / Time No Known Allergies Allergy Verified 02/22/21 15:32 Review of Systems ROS Statement: Those systems with pertinent positive or pertinent negative responses have been documented in the HPI. ROS Other: All systems not noted in ROS Statement are negative. Past Medical History Past Medical History: No Reported History Additional Past Medical History / Comment(s): back pain History of Any Multi-Drug Resistant Organisms: None Reported Past Surgical History: Appendectomy, Cholecystectomy Past Psychological History: Anxiety Smoking Status: Current every day smoker Past Alcohol Use History: Occasional Past Drug Use History: Marijuana General Exam - General Exam Comments Initial Comments: GENERAL: Patient is well-developed and well-nourished. Patient is nontoxic and in mild distress. HEAD: Atraumatic, normocephalic. EYES: Pupils equal round and reactive to light, extraocular movements intact, sclera anicteric, conjunctiva are normal. Eyelids were unremarkable. ENT: TMs normal, nares patent, oropharynx clear without exudates. Moist mucous membranes. NECK: Normal range of motion, supple without lymphadenopathy or JVD. LUNGS: Unlabored respirations. Breath sounds clear to auscultation bilaterally and equal. No wheezes rales or rhonchi. HEART: Regular rate and rhythm without murmurs, rubs or gallops. ABDOMEN: Soft, nontender, normoactive bowel sounds. No guarding, no rebound. No masses appreciated. : Deferred MUSCULOSKELETAL: Normal extremities with adequate strength and normal range of motion, no pitting or edema. No clubbing or cyanosis. Patient has tender to palpation of the left paraspinals, left lumbar spine. He does have full trunk range of motion. He also has some tenderness of the left glue. NEUROLOGICAL: Patient is alert and oriented x 3. Motor and sensory are also intact. Cranial nerves II through XII grossly intact. Symmetrical smile. Normal speech, normal gait. PSYCH: Normal mood, normal affect. SKIN: Warm, Dry, normal turgor, no rashes or lesions noted. Limitations: no limitations Course Vital Signs 02/22/21 15:30 Temperature 97.8 F Pulse Rate 86 Respiratory 20 Rate Blood Pressure 121/72 O2 Sat by Pulse 98 Oximetry Medical Decision Making - Medical Decision Making Patient is a 36-year-old male here with left lumbar pain for the past 2 days. He does have pain with palpation of this area, pain with trunk flexion. This is consistent with a muscle spasm in the lumbar spine. Patient will be given Toradol injection today, I will give him a prescription for Tylenol 3, muscle relaxer and a trial of steroids. Patient can follow up with his PCP. Return parameters were discussed with him and he verbalized understanding. Case discussed with Dr. Jackson. Disposition Clinical Impression: Strain of lumbar region Disposition: HOME SELF-CARE Condition: Stable Instructions (If sedation given, give patient instructions): Acute Low Back Pain (ED) Additional Instructions: Please return to the Emergency Department if symptoms worsen or any other concerns. Take steroids as prescribed, use muscle relaxer at nighttime. Recommend heat to the area, gentle stretching as discussed. Follow up with your PCP as symptoms persist. Prescriptions: Cyclobenzaprine [Flexeril] 5 mg PO BID #10 tablet predniSONE 50 mg PO DAILY #5 tab Is patient prescribed a controlled substance at d/c from ED?: No Referrals: Bhargav Sosa DO [Primary Care Provider] - 1-2 days Time of Disposition: 15:59
[2021-02-22 16:16] VITALS: BP 169/78; PULSE 78; RESP 18; TEMP 98.3
== END 2021-02-22 16:14 | disposition home or self-care (01) ==
LOC: EC 15:13
DX: S39.012A Strain of muscle, fascia and tendon of lower back, initial encounter (principal); F41.9 Anxiety disorder, unspecified; F17.200 Nicotine dependence, unspecified, uncomplicated; F12.90 Cannabis use, unspecified, uncomplicated; X58.XXXA Exposure to other specified factors, initial encounter
CPT/HCPCS: 96372; 99283

== ENCOUNTER 2022-09-10 03:43 | Emergency (ER) | payer OTHER ==
[2022-09-10 03:47] VITALS: RESP 18; TEMP 97.4
[2022-09-10 04:21] LABS: Basophils # (A) 0.1 k/uL (0-0.2); Basophils % (A) 1 %; Eosinophils # (A) 0.2 k/uL (0-0.7); Eosinophils % (A) 2 %; HCT 45.2 % (39.0-53.0); HGB 16.3 gm/dL (13.0-17.5); Lymphocytes # (A) 2.8 k/uL (1.0-4.8); Lymphocytes % (A) 26 %; MCH 33.2 pg (25.0-35.0); MCHC 36.1 g/dL (31.0-37.0); MCV 92.1 fL (80.0-100.0); Mean Platelet Volume 8.2; Monocytes # (A) 0.6 k/uL (0-1.0); Monocytes % (A) 5 %; Neutrophils # (A) 7.1 k/uL (1.3-7.7); Neutrophils % (A) 65 %; Platelet Count 242 k/uL (150-450); RDW 12.1 % (11.5-15.5); WBC 10.8 k/uL (3.8-10.6)
[2022-09-10 04:38] LABS: INR 0.9 (<1.2); Partial Thromboplastin Time 31.6 sec (22.0-30.0); Prothrombin Time 10.3 sec (9.0-12.0)
[2022-09-10 04:41] LABS: African American GFR (CKD) >90 (>60 ml/min/1.73 sqM); Albumin 4.3 g/dL (3.5-5.0); Anion Gap 8 mmol/L; Carbon Dioxide 22 mmol/L (22-30); Chloride 108 mmol/L (98-107); Glucose 138 mg/dL (74-99); Non-African American GFR(CKD) >90 (>60 ml/min/1.73 sqM); Sodium 138 mmol/L (137-145); Total Protein 6.9 g/dL (6.3-8.2)
[2022-09-10 04:42] LABS: ALT 33 U/L (4-49); AST 24 U/L (17-59); Alkaline Phosphatase 112 U/L (38-126); Blood Urea Nitrogen 17 mg/dL (9-20); Calcium 8.8 mg/dL (8.4-10.2); Total Bilirubin 0.4 mg/dL (0.2-1.3)
--- NOTE | 2022-09-10 05:11 | XR ---
EXAMINATION TYPE: XR chest 2V DATE OF EXAM: 09/10/2022 COMPARISON: 09/13/2020 HISTORY: Chest pain TECHNIQUE: FINDINGS: Heart is normal. There is some linear density left lung base. There are no hilar masses. No heart failure. Bony thorax is intact. No pleural effusion. IMPRESSION: There is some linear infiltrate and atelectasis left lung base which is new compared to o ld exam. Normal heart.
[2022-09-10 07:00] LABS: Amylase 36 U/L (30-110); Lipase 103 U/L (23-300)
--- NOTE | 2022-09-10 07:33 | ED ---
Chest Pain HPI - General Chief Complaint: Chest Pain Stated Complaint: MISHA Time Seen by Provider: 09/10/22 06:08 Source: patient, RN notes reviewed Mode of arrival: ambulatory Limitations: no limitations - History of Present Illness Initial Comments: This is a 37-year-old male who presents to the emergency department with chest pain. States that he woke up from sleep with substernal and left-sided chest pain radiating between his shoulder blades. Also reports pain in the left shoulder. Additionally, he reports associated shortness of breath. He has had chest pain in the past, but states that it has never been this severe. When the pain initially occurred, it was an 8 out of 10. Currently states that it is a 4 out of 10. Denies any coughing, congestion, or fevers. He did have minor nausea, which he states has since resolved. Denies any fevers, chills, sore throat, cough, palpitations, abdominal pain, vomiting, diarrhea, back pain, or headaches. MD Complaint: chest pain Onset: awoke with symptoms Pain Location: substernal, left chest Pain Radiation: back - Related Data Previous Rx's Medication Instructions Recorded Lidocaine 5% Patch [Lidoderm] 1 patch TOPICAL DAILY #30 patch 02/24/20 Naproxen [EC-Naprosyn] 500 mg PO BID PRN #30 tablet. 02/24/20 diazePAM [Valium] 5 mg PO TID PRN 3 Days #9 tab 02/24/20 Cyclobenzaprine [Flexeril] 5 mg PO BID #10 tablet 02/22/21 predniSONE 50 mg PO DAILY #5 tab 02/22/21 Azithromycin [Zithromax] 250 mg PO DIRECTED 5 Days #6 tab 09/10/22 Allergies Allergy/AdvReac Type Severity Reaction Status Date / Time No Known Allergies Allergy Verified 09/10/22 03:45 Review of Systems ROS Statement: Those systems with pertinent positive or pertinent negative responses have been documented in the HPI. ROS Other: All systems not noted in ROS Statement are negative. EKG Findings - EKG Comments: EKG Findings:: Sinus rhythm. Normal axis. Ventricular rate 73 bpm, VT interval 139 ms, QRS duration 94 ms, QTC 389 ms. - EKG Results: EKG: interpreted by ELIJHA Past Medical History Past Medical History: No Reported History Additional Past Medical History / Comment(s): back pain History of Any Multi-Drug Resistant Organisms: None Reported Past Surgical History: Appendectomy, Cholecystectomy Past Psychological History: Anxiety Smoking Status: Current every day smoker Past Alcohol Use History: Occasional Past Drug Use History: Marijuana General Exam Limitations: no limitations General appearance: alert, in no apparent distress Head exam: Present: atraumatic, normocephalic, normal inspection Respiratory exam: Present: normal lung sounds bilaterally. Absent: respiratory distress, wheezes, rales, rhonchi, stridor, chest wall tenderness, decreased breath sounds Cardiovascular Exam: Present: regular rate, normal rhythm, normal heart sounds. Absent: systolic murmur, diastolic murmur, rubs, gallop, clicks GI/Abdominal exam: Present: soft, tenderness (RUQ and LUQ), normal bowel sounds. Absent: distended Neurological exam: Present: alert, oriented X3, CN II-XII intact Psychiatric exam: Present: normal affect, normal mood Skin exam: Present: warm, dry, intact, normal color. Absent: rash Course Vital Signs 09/10/22 09/10/22 03:45 08:42 Temperature 97.4 F L Pulse Rate 78 74 Respiratory 18 18 Rate Blood Pressure 148/73 122/74 O2 Sat by Pulse 97 99 Oximetry Chest Pain MDM - MDM This is a 37-year-old male who presents to the emergency department for chest pain and shortness of breath. My interpretation of the patient's chest x-ray reveals a linear infiltrate to the left lung. Lab work reveals very mild leukocytosis and was otherwise nonactionable, including a negative d-dimer and negative troponin. Second troponin and inflammatory markers obtained, which were also found to be negative. EKG reveals no ST elevations or depressions. He declined COVID and influenza testing. Workup at this time reveals no signs of a cardiac etiology. Advised he try taking ibuprofen if this were to occur again as well as an antacid such as Pepcid, Maalox, or Tums. Symptoms may also be related to the pneumonia noted on the chest x-ray. Prescription for a Z-Mike was provided. Instructed him to follow up with his primary care provider this week to reevaluate symptoms and discuss if any additional workup is indicated. Recommended he avoid any excess exertion and get plenty of rest. If the chest pain or shortness of breath recur, I instructed him to return via EMS. Return precautions reviewed in depth, the patient is instructed to return to the emergency department with any new, worsening, or concerning symptoms. Patient verbalized understanding. This case was discussed in detail with the attending ED physician. Presentation, findings, and treatment plan discussed in detail as well. Disposition Clinical Impression: Atypical chest pain, Pneumonia Disposition: HOME SELF-CARE Instructions (If sedation given, give patient instructions): Noncardiac Chest Pain (ED), Pneumonia (ED) Additional Instructions: Return to the emergency department with any new, worsening, or concerning symptoms. Take the antibiotic as prescribed for 5 days. Try taking ibuprofen for pain relief. You can also try an antacid such as Pepcid, Maalox, or Tums. Follow up with your primary care provider in 1-2 days. Prescriptions: Azithromycin [Zithromax] 250 mg PO DIRECTED 5 Days #6 tab Is patient prescribed a controlled substance at d/c from ED?: No Referrals: Bhargav Sosa DO [Primary Care Provider] - 1-2 days
[2022-09-10 08:43] VITALS: BP 122/74; PULSE 74
== END 2022-09-10 08:43 | disposition home or self-care (01) ==
LOC: EC 03:43
DX: J18.9 Pneumonia, unspecified organism (principal); F41.9 Anxiety disorder, unspecified; F12.90 Cannabis use, unspecified, uncomplicated
CPT/HCPCS: 36415; 71046; 80053; 82150; 83690; 84484; 85025; 85379; 85610; 85652; 85730; 86140; 93005; 99285

== ENCOUNTER 2023-10-18 01:28 | Emergency (ER) | payer OTHER ==
[2023-10-18] MEDS ORDERED: SODIUM CHLORIDE 0.9% 1,000 ML IV STA (01:50)
[2023-10-18] MEDS ORDERED: ONDANSETRON 4 MG/2 ML VIAL IVP STA (01:50)
[2023-10-18] MEDS ORDERED: KETOROLAC 15 MG/ML 1 ML VIAL IVP STA (01:51)
[2023-10-18] MEDS ORDERED: LORazepam 0.5 MG TAB PO STA (01:59)
[2023-10-18 02:16] LABS: Basophils # (A) 0.1 k/uL (0-0.2); Basophils % (A) 1 %; Eosinophils # (A) 0.2 k/uL (0-0.7); Eosinophils % (A) 2 %; HCT 45.7 % (39.0-53.0); HGB 16.6 gm/dL (13.0-17.5); Lymphocytes # (A) 2.7 k/uL (1.0-4.8); Lymphocytes % (A) 26 %; MCH 33.9 pg (25.0-35.0); MCHC 36.3 g/dL (31.0-37.0); MCV 93.2 fL (80.0-100.0); Mean Platelet Volume 7.2; Monocytes # (A) 0.5 k/uL (0-1.0); Monocytes % (A) 5 %; Neutrophils # (A) 6.5 k/uL (1.3-7.7); Neutrophils % (A) 65 %; Platelet Count 247 k/uL (150-450); RBC 4.91 m/uL (4.30-5.90); RDW 11.7 % (11.5-15.5); WBC 10.1 k/uL (3.8-10.6)
[2023-10-18 02:36] LABS: ALT 37 U/L (4-49); AST 38 U/L (17-59); African American GFR (CKD) >90 (>60 ml/min/1.73 sqM); Albumin 4.3 g/dL (3.5-5.0); Alkaline Phosphatase 89 U/L (38-126); Anion Gap 11 mmol/L; Blood Urea Nitrogen 15 mg/dL (9-20); Calcium 8.9 mg/dL (8.4-10.2); Carbon Dioxide 21 mmol/L (22-30); Chloride 104 mmol/L (98-107); Glucose 103 mg/dL (74-99); Lipase 43 U/L (23-300); Non-African American GFR(CKD) >90 (>60 ml/min/1.73 sqM); Sodium 136 mmol/L (137-145); Total Bilirubin 0.8 mg/dL (0.2-1.3); Total Protein 7.5 g/dL (6.3-8.2)
[2023-10-18 02:58] LABS: INR 0.9 (<1.2); Partial Thromboplastin Time 31.1 sec (22.0-30.0); Prothrombin Time 10.1 sec (10.0-12.5)
[2023-10-18 03:04] LABS: Potassium 4.6 mmol/L (3.5-5.1)
--- NOTE | 2023-10-18 03:31 | ED ---
General Adult HPI - General Chief complaint: Chest Pain Stated complaint: MISHA Time Seen by Provider: 10/18/23 01:41 Source: patient, RN notes reviewed, old records reviewed Mode of arrival: ambulatory Limitations: no limitations - History of Present Illness Initial comments: Patient is a 38 year old male who presents with the department complaining of w hat he describes his chest pain. Seems to be lower rib pain/chest pain/abdominal pain. States began having a burning, sharp sensation radiating him on the inferior most ribs across both sides of his chest. Worse with movement and palpation. Some onset earlier. This is her anxiety. Denies any e mesis but endorses mild nausea. Denies any diarrhea. Has no other acute complaints at this time. His resting comfortably at this time. Pain started recently. Presents for further evaluation. Hasn't cardiac history. Denies shortness of breath. Denies fevers or cough. Had similar episode 3-4 days ago. States she was playing video games when he had the symptoms this evening. - Related Data Previous Rx's Medication Instructions Recorded Lidocaine 5% Patch [Lidoderm] 1 patch TOPICAL DAILY #30 patch 02/24/20 Naproxen [EC-Naprosyn] 500 mg PO BID PRN #30 tablet. 02/24/20 diazePAM [Valium] 5 mg PO TID PRN 3 Days #9 tab 02/24/20 Cyclobenzaprine [Flexeril] 5 mg PO BID #10 tablet 02/22/21 predniSONE 50 mg PO DAILY #5 tab 02/22/21 Azithromycin [Zithromax] 250 mg PO DIRECTED 5 Days #6 tab 09/11/22 Famotidine [Pepcid] 20 mg PO DAILY 14 Days #14 tablet 10/18/23 Allergies Allergy/AdvReac Type Severity Reaction Status Date / Time No Known Allergies Allergy Verified 10/18/23 01:39 Review of Systems ROS Statement: Those systems with pertinent positive or pertinent negative responses have been documented in the HPI. Review of Systems: CONST: Denies fever EYES: Denies blurry vision ENT: Denies nasal congestion C/V: endorses chest pain RESP: Denies shortness of breath GI: Denies abdominal pain : Denies dysuria SKIN: Denies rash. MSK: Denies joint pain. NEURO: Denies headache ROS Other: All systems not noted in ROS Statement are negative. Past Medical History Past Medical History: No Reported History Additional Past Medical History / Comment(s): back pain History of Any Multi-Drug Resistant Organisms: None Reported Past Surgical History: Appendectomy, Cholecystectomy Past Psychological History: Anxiety Smoking Status: Current every day smoker Past Alcohol Use History: Occasional Past Drug Use History: Marijuana General Exam - General Exam Comments Initial Comments: General: Appears in no acute distress. HEAD: Normal with no signs of head trauma. EYES: PERRLA, EOMI, conjunctiva normal, no discharge. ENT: Hearing grossly intact, normal oropharynx. RESPIRATORY: Clear breath sounds bilaterally. No wheezes, rales, or rhonchi. C/V: Regular rate and rhythm. S1 and S2 auscultated, no edema, peripheral pulses 2+ and intact throughout ABD: Abd is soft, nontender, nondistended EXT: Normal range of motion, no obvious deformity. Bilateral rib tenderness palpation anteriorly as well as sternal tenderness palpation. Worse with movement and palpation. SKIN: No rashes or lesions observed on exposed skin. NEURO: Alert and oriented x 4. Limitations: no limitations Course Vital Signs 10/18/23 10/18/23 10/18/23 01:37 03:44 06:39 Temperature 98 F 98.0 F Pulse Rate 88 76 71 Respiratory 18 20 19 Rate Blood Pressure 132/91 131/75 114/86 O2 Sat by Pulse 97 98 Oximetry Medical Decision Making - Medical Decision Making Was pt. sent in by a medical professional or institution ([facility], [facility], urgent care, hospital, or fpc...) When possible be specific @ -No Did you speak to anyone other than the patient for history (EMS, parent, family, police, friend...)? What history was obtained from this source @ -No Did you review nursing and triage notes (agree or disagree)? Why? @ -I reviewed and agree with nursing and triage notes Were old charts reviewed (outside hosp., previous admission, EMS record, old EKG, old radiological studies, urgent care reports/EKG's, fpc records)? Report findings @ -Old charts reviewed Differential Diagnosis (chest pain, altered mental status, abdominal pain women, abdominal pain men, vaginal bleeding, weakness, fever, dyspnea, syncope, headache, dizziness, GI bleed, back pain, seizure, CVA, palpatations, mental health, musculoskeletal)? @ -Differential Chest Pain: Stable Angina, Unstable Angina, STEMI, NSTEMI Aortic Dissection, Pneumothorax, Musculoskeletal, Esophageal Spasm GERD, Cholecystitis, Pancreatitis, Zoster, this is not meant to be an all-inclusive list. EKG interpreted by me (3pts min.). @ -As above X-rays interpreted by me (1pt min.). @ -Chest x-ray reveals no obvious acute cardio pulmonary process. CT interpreted by me (1pt min.). @ -None done U/S interpreted by me (1pt. min.). @ -None done What testing was considered but not performed or refused? (CT, X-rays, U/S, labs)? Why? @ -None What meds were considered but not given or refused? Why? @ -None Did you discuss the management of the patient with other professionals (professionals i.e. , PA, [employer], lab, RT, psych nurse, social science professor, sheep boner, teacher, rating officer, correctional case manager)? Give summary @ -No Was smoking cessation discussed for >3mins.? @ -No Was critical care preformed (if so, how long)? @ -No Were there social determinants of health that impacted care today? How? (Homelessness, low income, unemployed, alcoholism, drug addiction, transportation, low edu. Level, literacy, decrease access to med. care, penitentiary, rehab)? @ -No Was there de-escalation of care discussed even if they declined (Discuss DNR or withdrawal of care, Hospice)? DNR status @ -No What co-morbidities impacted this encounter? (DM, HTN, Smoking, COPD, CAD, Cancer, CVA, ARF, Chemo, Hep., AIDS, mental health diagnosis, sleep apnea, morbid obesity)? @ -None Was patient admitted / discharged? Hospital course, mention meds given and r oute, prescriptions, significant lab abnormalities, going to OR and other pertinent info. @ -Based on the patient's presentation and physical exam, presents with reproducible rib pain. Patient will be given IV Toradol, oral Ativan, IV Zofran and fluids for analgesia. We obtained cardiac and abdominal labs. Patient agreement this plan. Symptoms seem more chest wall pain in nature. Vital signs within acceptable limits. EKG showed no signs of acute ischemia. Chest x-ray unremarkable. Patient's lavatory studies are remarkable for undetectable troponins x2. Patient is a symptomatic at this time. We discussed his results. He will be discharged home. He was in agreement this plan. I instructed the patient to follow up with their PCP in the next 1-3 days. I explained that the patient should return to the emergency department if they experience any worsening symptoms. Strict return precautions were discussed with the patient. The patient expressed understanding of these instructions. I answered all questions that the patient had. The patient was discharged home in good condition with their prescriptions and follow up information. Undiagnosed new problem with uncertain prognosis? @ -No Drug Therapy requiring intensive monitoring for toxicity (Heparin, Nitro, Insulin, Cardizem)? @ -No Were any procedures done? @ -No Diagnosis/symptom? @ -Chest wall pain Acute, or Chronic, or Acute on Chronic? @ -Acute Uncomplicated (without systemic symptoms) or Complicated (systemic symptoms)? @ -Uncomplicated Side effects of treatment? @ -No Exacerbation, Progression, or Severe Exacerbation? @ -No Poses a threat to life or bodily function? How? (Chest pain, USA, MS, pneumonia, PE, COPD, DKA, ARF, appy, cholecystitis, CVA, Diverticulitis, Homicidal, Suicidal, threat to staff... and all critical care pts) @ -No - Lab Data Result diagrams: 10/18/23 02:08 10/18/23 02:08 Lab Results 10/18/23 10/18/23 10/18/23 Range/Units 02:08 02:08 02:08 WBC 10.1 (3.8-10.6) k/uL RBC 4.91 (4.30-5.90) m/uL Hgb 16.6 (13.0-17.5) gm/dL Hct 45.7 (39.0-53.0) % MCV 93.2 (80.0-100.0) fL MCH 33.9 (25.0-35.0) pg MCHC 36.3 (31.0-37.0) g/dL RDW 11.7 (11.5-15.5) % Plt Count 247 (150-450) k/uL MPV 7.2 Neutrophils % 65 % Lymphocytes % 26 % Monocytes % 5 % Eosinophils % 2 % Basophils % 1 % Neutrophils # 6.5 (1.3-7.7) k/uL Lymphocytes # 2.7 (1.0-4.8) k/uL Monocytes # 0.5 (0-1.0) k/uL Eosinophils # 0.2 (0-0.7) k/uL Basophils # 0.1 (0-0.2) k/uL PT 10.1 (10.0-12.5) sec INR 0.9 (<1.2) APTT 31.1 H (22.0-30.0) sec Sodium 136 L (137-145) mmol/L Potassium 4.6 (3.5-5.1) mmol/L Chloride 104 (98-107) mmol/L Carbon Dioxide 21 L (22-30) mmol/L Anion Gap 11 mmol/L BUN 15 (9-20) mg/dL Creatinine 0.79 (0.66-1.25) mg/dL Est GFR (CKD-EPI)AfAm >90 (>60 ml/min/1.73 sqM) Est GFR (CKD-EPI)NonAf >90 (>60 ml/min/1.73 sqM) Glucose 103 H (74-99) mg/dL Calcium 8.9 (8.4-10.2) mg/dL Magnesium 2.0 (1.6-2.3) mg/dL Total Bilirubin 0.8 (0.2-1.3) mg/dL AST 38 (17-59) U/L ALT 37 (4-49) U/L Alkaline Phosphatase 89 (38-126) U/L Troponin I (0.000-0.034) ng/mL Total Protein 7.5 (6.3-8.2) g/dL Albumin 4.3 (3.5-5.0) g/dL Lipase 43 (23-300) U/L Influenza Type A (PCR) (Not Detectd) Influenza Type B (PCR) (Not Detectd) RSV (PCR) (Not Detectd) SARS-CoV-2 (PCR) (Not Detectd) 10/18/23 10/18/23 10/18/23 Range/Units 02:08 02:08 05:13 WBC (3.8-10.6) k/uL RBC (4.30-5.90) m/uL Hgb (13.0-17.5) gm/dL Hct (39.0-53.0) % MCV (80.0-100.0) fL MCH (25.0-35.0) pg MCHC (31.0-37.0) g/dL RDW (11.5-15.5) % Plt Count (150-450) k/uL MPV Neutrophils % % Lymphocytes % % Monocytes % % Eosinophils % % Basophils % % Neutrophils # (1.3-7.7) k/uL Lymphocytes # (1.0-4.8) k/uL Monocytes # (0-1.0) k/uL Eosinophils # (0-0.7) k/uL Basophils # (0-0.2) k/uL PT (10.0-12.5) sec INR (<1.2) APTT (22.0-30.0) sec Sodium (137-145) mmol/L Potassium (3.5-5.1) mmol/L Chloride (98-107) mmol/L Carbon Dioxide (22-30) mmol/L Anion Gap mmol/L BUN (9-20) mg/dL Creatinine (0.66-1.25) mg/dL Est GFR (CKD-EPI)AfAm (>60 ml/min/1.73 sqM) Est GFR (CKD-EPI)NonAf (>60 ml/min/1.73 sqM) Glucose (74-99) mg/dL Calcium (8.4-10.2) mg/dL Magnesium (1.6-2.3) mg/dL Total Bilirubin (0.2-1.3) mg/dL AST (17-59) U/L ALT (4-49) U/L Alkaline Phosphatase (38-126) U/L Troponin I <0.012 <0.012 (0.000-0.034) ng/mL Total Protein (6.3-8.2) g/dL Albumin (3.5-5.0) g/dL Lipase (23-300) U/L Influenza Type A (PCR) Not Detected (Not Detectd) Influenza Type B (PCR) Not Detected (Not Detectd) RSV (PCR) Not Detected (Not Detectd) SARS-CoV-2 (PCR) Not Detected (Not Detectd) - EKG Data -: EKG Interpreted by Me EKG Comments: 12-lead Electrocardiogram Interpretation Note EKG was reviewed and interpreted by myself. 12-lead ECG performed at 0201 is interpreted by me as revealing normal sinus rhythm at a rate of 79 beats per minute. [place] is normal. NC interval is 127 ms, QRS duration is 98 ms, QTc is 397 ms. There were no ST or T wave abnormalities to suggest myocardial ischemia or injury. R wave progression across the precordium was satisfactory. By my interpretation this EKG is non-diagnostic for acute ischemia. Disposition Clinical Impression: Chest wall pain Disposition: HOME SELF-CARE Condition: Good Instructions (If sedation given, give patient instructions): Costochondritis (ED), Chest Wall Pain (ED) Prescriptions: Famotidine [Pepcid] 20 mg PO DAILY 14 Days #14 tablet Is patient prescribed a controlled substance at d/c from ED?: No Referrals: Bhargav Sosa DO [Primary Care Provider] - 1-2 days Time of Disposition: 05:56
[2023-10-18 06:45] VITALS: BP 114/86; PULSE 71; RESP 19; TEMP 98
--- NOTE | 2023-10-18 07:15 | XR ---
EXAMINATION TYPE: XR chest 2V DATE OF EXAM: 10/18/2023 2:25 AM CLINICAL INDICATION:Male, 38 years old with history of Chest Pain; [facility] COMPARISON: Chest radiographs from 09/10/2022 TECHNIQUE: XR chest 2V Frontal and lateral views of the chest. FINDINGS: Lungs/Pleura: Low lung volumes are present. There is no evidence of pleural effusion, focal consolida tion, or pneumothorax. Pulmonary vascularity: Unremarkable. Heart/mediastinum: Cardiomediastinal silhouette is unremarkable. Musculoskeletal: No acute osseous pathology. Other findings: None IMPRESSION: Similar lobe lung volumes with a generalized hazy appearance which could represent atelectasis.
== END 2023-10-18 06:41 | disposition home or self-care (01) ==
LOC: EC 01:28
DX: R07.89 Other chest pain (principal); F17.200 Nicotine dependence, unspecified, uncomplicated; F12.90 Cannabis use, unspecified, uncomplicated; Z86.59 Personal history of other mental and behavioral disorders
CPT/HCPCS: 36415; 93005; 80053; 83690; 83735; 84484; 85025; 85610; 85730; 87636; 71046; 99285; 96374; 96361; J1885

== ENCOUNTER 2023-10-26 07:03 | Emergency (ER) | payer OTHER ==
[2023-10-26 07:17] VITALS: BP 144/86; PULSE 89; RESP 18; TEMP 98.1
--- NOTE | 2023-10-26 07:19 | ED ---
General Adult HPI - General Chief complaint: Upper Respiratory Infection Stated complaint: Cough, Back Pain Time Seen by Provider: 10/26/23 07:19 Source: patient, RN notes reviewed Mode of arrival: ambulatory Limitations: no limitations - History of Present Illness Initial comments: 38-year-old male with no significant past medical history presents the emergency department with a chief complaint of cough. Patient reports recent RSV exposure. He is complaining of nonproductive cough. Denies any known fevers. Denies shortness of breath , fevers or chest pain. He is up-to-date on vaccines. Has not been drinking anything for his symptoms. - Related Data Previous Rx's Medication Instructions Recorded Lidocaine 5% Patch [Lidoderm] 1 patch TOPICAL DAILY #30 patch 02/24/20 Naproxen [EC-Naprosyn] 500 mg PO BID PRN #30 tablet. 02/24/20 diazePAM [Valium] 5 mg PO TID PRN 3 Days #9 tab 02/24/20 Cyclobenzaprine [Flexeril] 5 mg PO BID #10 tablet 02/22/21 predniSONE 50 mg PO DAILY #5 tab 02/22/21 Azithromycin [Zithromax] 250 mg PO DIRECTED 5 Days #6 tab 09/11/22 Famotidine [Pepcid] 20 mg PO DAILY 14 Days #14 tablet 10/18/23 Benzonatate [Tessalon Perles] 100 mg PO TID PRN #30 capsule 10/26/23 Allergies Allergy/AdvReac Type Severity Reaction Status Date / Time No Known Allergies Allergy Verified 10/26/23 07:16 Review of Systems ROS Statement: Those systems with pertinent positive or pertinent negative responses have been documented in the HPI. ROS Other: All systems not noted in ROS Statement are negative. Past Medical History Past Medical History: No Reported History Additional Past Medical History / Comment(s): back pain History of Any Multi-Drug Resistant Organisms: None Reported Past Surgical History: Appendectomy, Cholecystectomy Past Psychological History: Anxiety Smoking Status: Current every day smoker Past Alcohol Use History: Occasional Past Drug Use History: Marijuana General Exam - General Exam Comments Initial Comments: Visual Physical Exam Vital signs reviewed General: Well-appearing, nontoxic, no acute distress. Head: Normocephalic, atraumatic Eyes: PERRLA, EOMI ENT: Airway patent Chest: Nonlabored breathing Skin: No visual rash, normal skin tone Neuro: Alert and oriented 3 Musculoskeletal: No gross abnormalities General: Alert, in no acute distress Head: atraumatic normocephalic. Eyes PERRL, EOMI intact, mucous membranes moist Respiratory: Lungs clear to auscultation bilaterally Cardiovascular: Heart rate regular rate and rhythm Abdominal: Soft without guarding or rebound Extremities: Normal inspection with full range of motion and normal capillary refill Neuroogic: alert and oriented 3, CN II-XII intact, able to ambulate with steady gait Skin: warm dry and intact with normal color Limitations: no limitations Course Vital Signs 10/26/23 07:14 Temperature 98.1 F Pulse Rate 89 Respiratory 18 Rate Blood Pressure 144/86 O2 Sat by Pulse 96 Oximetry Medical Decision Making - Medical Decision Making I performed the quick note portion of this exam, verbal signature Renetta Henry PA-C Was pt. sent in by a medical professional or institution ([facility], [facility], urgent care, hospital, or retirement...) When possible be specific @ -[No] Did you speak to anyone other than the patient for history (EMS, parent, family, police, friend...)? What history was obtained from this source @ -[No] Did you review nursing and triage notes (agree or disagree)? Why? @ -[I reviewed and agree with nursing and triage notes] Were old charts reviewed (outside hosp., previous admission, EMS record, old EKG, old radiological studies, urgent care reports/EKG's, retirement records)? Report findings @ -[No old charts were reviewed] Differential Diagnosis (chest pain, altered mental status, abdominal pain women, abdominal pain men, vaginal bleeding, weakness, fever, dyspnea, syncope, headache, dizziness, GI bleed, back pain, seizure, CVA, palpatations, mental health, musculoskeletal)? @ -[not applicable] EKG interpreted by me (3pts min.). @ -[As above] X-rays interpreted by me (1pt min.). @ -Chest x-ray does not reveal any focal consolidation CT interpreted by me (1pt min.). @ -[None done] U/S interpreted by me (1pt. min.). @ -[None done] What testing was considered but not performed or refused? (CT, X-rays, U/S, labs)? Why? @ -[None] What meds were considered but not given or refused? Why? @ -[None] Did you discuss the management of the patient with other professionals (professionals i.e. , PA, PROGRAM MGR, lab, RT, psych nurse, geriatric social worker, corporation lawyer, teacher, bank compliance officer, rn case manager)? Give summary @ -[No] Was smoking cessation discussed for >3mins.? @ -[No] Was critical care preformed (if so, how long)? @ -[No] Were there social determinants of health that impacted care today? How? (Homelessness, low income, unemployed, alcoholism, drug addiction, transportation, low edu. Level, literacy, decrease access to med. care, custodial, rehab)? @ -[No] Was there de-escalation of care discussed even if they declined (Discuss DNR or withdrawal of care, Hospice)? DNR status @ -[No] What co-morbidities impacted this encounter? (DM, HTN, Smoking, COPD, CAD, Cancer, CVA, ARF, Chemo, Hep., AIDS, mental health diagnosis, sleep apnea, morbid obesity)? @ -[None] Was patient admitted / discharged? Hospital course, mention meds given and route, prescriptions, significant lab abnormalities, going to OR and other pertinent info. @ Discharged. This is a pleasant 38-year-old male presents the emergency department with cough and congestion. Patient had thorough history and physical exam performed. Vital signs are stable. Patient is afebrile. Patient is RSV positive. Chest x-ray does not reveal any focal consolidation. I discussed this results in detail with the patient verbalized understanding and all questions were addressed. He is agreeable with the plan for discharge home. Discharged in stable condition. Provided prescription for Tessalon Perles. Case discussed with Dr. Escamilla, ED attending who agrees with plan of care Undiagnosed new problem with uncertain prognosis? @ -[No] Drug Therapy requiring intensive monitoring for toxicity (Heparin, Nitro, Insulin, Cardizem)? @ -[No] Were any procedures done? @ -[No] Diagnosis/symptom? @ -RSV - Cough Acute, or Chronic, or Acute on Chronic? @ -Acute Uncomplicated (without systemic symptoms) or Complicated (systemic symptoms)? @ -Uncomplicated Side effects of treatment? @ -[No] Exacerbation, Progression, or Severe Exacerbation? @ -[No] Poses a threat to life or bodily function? How? (Chest pain, [place], [place], pneumonia, PE, COPD, DKA, ARF, appy, cholecystitis, CVA, Diverticulitis, Homicidal, Suicidal, threat to staff... and all critical care pts) @ -Low likelihood - Lab Data Lab Results 10/26/23 Range/Units 07:24 Influenza Type A (PCR) Not Detected (Not Detectd) Influenza Type B (PCR) Not Detected (Not Detectd) RSV (PCR) Detected A (Not Detectd) SARS-CoV-2 (PCR) Not Detected (Not Detectd) Disposition Clinical Impression: Cough, RSV (acute bronchiolitis due to respiratory syncytial virus) Disposition: HOME SELF-CARE Condition: Stable Instructions (If sedation given, give patient instructions): Upper Respiratory Infection (ED) Additional Instructions: Monitor symptoms closely Please take tessalon pearls for cough Return to the nearest emergency department if worsening symptoms of cough or high fever develops Prescriptions: Benzonatate [Tessalon Perles] 100 mg PO TID PRN #30 capsule PRN Reason: Cough Is patient prescribed a controlled substance at d/c from ED?: No Referrals: Bhargav Sosa DO [Primary Care Provider] - 1-2 days Time of Disposition: 08:55
--- NOTE | 2023-10-26 08:10 | XR ---
EXAMINATION TYPE: XR chest 2V DATE OF EXAM: 10/26/2023 COMPARISON: 10/18/2023 HISTORY: 38-year-old male with cough and congestion TECHNIQUE: PA and lateral views FINDINGS: Heart normal size. Aorta within normal limits. No consolidation or pleural effusion. IMPRESSION: No acute cardiopulmonary process.
[2023-10-26] MEDS ORDERED: BENZONATATE 100 MG CAP PO STA (08:53)
== END 2023-10-26 19:29 | disposition home or self-care (01) ==
LOC: EC 07:03
DX: J21.0 Acute bronchiolitis due to respiratory syncytial virus (principal); F17.200 Nicotine dependence, unspecified, uncomplicated; F12.90 Cannabis use, unspecified, uncomplicated; Z86.59 Personal history of other mental and behavioral disorders; Z20.822 Contact with and (suspected) exposure to COVID-19
CPT/HCPCS: 71046; 87636; 99283

== ENCOUNTER 2023-11-21 10:18 | Emergency (ER) | payer OTHER ==
--- NOTE | 2023-11-21 11:09 | XR ---
EXAMINATION TYPE: XR chest 2V DATE OF EXAM: 11/21/2023 10:54 AM CLINICAL INDICATION:Male, 38 years old with history of cough sob; [facility] COMPARISON: Chest radiographs from 10/26/2023 TECHNIQUE: XR chest 2V Frontal and lateral views of the chest. FINDINGS: Lungs/Pleura: There is no evidence of pleural effusion, focal consolidation, or pneumothorax. Pulmonary vascularity: Unremarkable. Heart/mediastinum: Cardiomediastinal silhouette is unremarkable. Musculoskeletal: No acute osseous pathology. Other findings: None IMPRESSION: No acute cardiopulmonary disease/process.
[2023-11-21] MEDS ORDERED: IPRATROPIUM-ALBUTEROL 3 ML NEB INHALATION STA (11:15)
--- NOTE | 2023-11-21 11:26 | ED ---
General Adult HPI - General Chief complaint: Upper Respiratory Infection Stated complaint: cough Time Seen by Provider: 11/21/23 10:34 Source: patient, RN notes reviewed Mode of arrival: ambulatory Limitations: no limitations - History of Present Illness Initial comments: 38-year-old male presents to the emergency department for evaluation of cough x 2 days. He notes associated shortness of breath. Patient also reports some fatigue. He states that he had an episode earlier today where he got flushed and sweaty. Patient recently got over RSV. He states that his cough had improved but has returned recently. He admits to some sternal discomfort. He states that he had this when he had RSV. He states that it is worse when he had RSV. He is concerned that he has pneumonia. He denies recent fever, chills. - Related Data Previous Rx's Medication Instructions Recorded Lidocaine 5% Patch [Lidoderm] 1 patch TOPICAL DAILY #30 patch 02/24/20 Naproxen [EC-Naprosyn] 500 mg PO BID PRN #30 tablet. 02/24/20 diazePAM [Valium] 5 mg PO TID PRN 3 Days #9 tab 02/24/20 Cyclobenzaprine [Flexeril] 5 mg PO BID #10 tablet 02/22/21 predniSONE 50 mg PO DAILY #5 tab 02/22/21 Azithromycin [Zithromax] 250 mg PO DIRECTED 5 Days #6 tab 09/11/22 Famotidine [Pepcid] 20 mg PO DAILY 14 Days #14 tablet 10/18/23 Benzonatate [Tessalon Perles] 100 mg PO TID PRN #30 capsule 10/26/23 Albuterol Inhaler [Ventolin Hfa 1 puff INHALATION QID #8 gm 11/21/23 Inhaler] predniSONE 50 mg PO DAILY #5 tab 11/21/23 Allergies Allergy/AdvReac Type Severity Reaction Status Date / Time No Known Allergies Allergy Verified 11/21/23 10:26 Review of Systems ROS Statement: Those systems with pertinent positive or pertinent negative responses have been documented in the HPI. ROS Other: All systems not noted in ROS Statement are negative. Past Medical History Past Medical History: No Reported History Additional Past Medical History / Comment(s): back pain History of Any Multi-Drug Resistant Organisms: None Reported Past Surgical History: Appendectomy, Cholecystectomy Past Psychological History: Anxiety Smoking Status: Current every day smoker Past Alcohol Use History: Occasional Past Drug Use History: Marijuana General Exam Limitations: no limitations General appearance: alert, in no apparent distress Head exam: Present: atraumatic, normocephalic, normal inspection Eye exam: Present: normal appearance, PERRL, EOMI. Absent: scleral icterus, conjunctival injection, periorbital swelling ENT exam: Present: normal exam, mucous membranes moist Neck exam: Present: normal inspection. Absent: tenderness, meningismus, lymphadenopathy Respiratory exam: Present: wheezes. Absent: respiratory distress, rales, rhonchi, stridor, accessory muscle use Cardiovascular Exam: Present: regular rate, normal rhythm, normal heart sounds. Absent: systolic murmur, diastolic murmur, rubs, gallop, clicks GI/Abdominal exam: Present: soft. Absent: distended, tenderness, guarding, rebound, rigid Extremities exam: Present: normal inspection, full ROM, normal capillary refill. Absent: tenderness, pedal edema, joint swelling, calf tenderness Back exam: Present: normal inspection Neurological exam: Present: alert, oriented X3 Psychiatric exam: Present: normal affect, normal mood Skin exam: Present: warm, dry, intact, normal color. Absent: rash Course Vital Signs 11/21/23 11/21/23 11/21/23 10:26 11:41 11:53 Temperature 97.7 F Pulse Rate 80 60 62 Respiratory 18 Rate Blood Pressure 134/80 O2 Sat by Pulse 99 Oximetry 11/21/23 14:00 Temperature 97.8 F Pulse Rate 70 Respiratory 17 Rate Blood Pressure 130/68 O2 Sat by Pulse 98 Oximetry Medical Decision Making - Medical Decision Making Was pt. sent in by a medical professional or institution (, PA, INKER MACHINE, urgent care, hospital, or [facility]...) When possible be specific @ -No Did you speak to anyone other than the patient for history (EMS, parent, family, police, friend...)? What history was obtained from this source @ -No Did you review nursing and triage notes (agree or disagree)? Why? @ -I reviewed and agree with nursing and triage notes Were old charts reviewed (outside hosp., previous admission, EMS record, old EKG, old radiological studies, urgent care reports/EKG's, [facility] records)? Report findings @ -No old charts were reviewed Differential Diagnosis (chest pain, altered mental status, abdominal pain women, abdominal pain men, vaginal bleeding, weakness, fever, dyspnea, syncope, headache, dizziness, GI bleed, back pain, seizure, CVA, palpatations, mental health, musculoskeletal)? @ -Differential Dyspnea: Coronary syndrome, arrhythmia, tamponade, asthma, COPD, pulmonary embolism, pneumonia, pneumothorax, pulmonary effusion, anaphylaxis, diabetic ketoacidosis, flailed chest, pulmonary contusion, diaphragmatic rupture, anemia, neuromuscular, this is not meant to be an all-inclusive list. EKG interpreted by me (3pts min.). @ -EKG at 1225 shows sinus rhythm rate 66, DC 135, QRS 94, QTQTc [id number] X-rays interpreted by me (1pt min.). @ -Chest x-ray shows no acute infiltrate CT interpreted by me (1pt min.). @ -None done U/S interpreted by me (1pt. min.). @ -None done What testing was considered but not performed or refused? (CT, X-rays, U/S, labs)? Why? @ -None What meds were considered but not given or refused? Why? @ -None Did you discuss the management of the patient with other professionals (professionals i.e. , PA, INKER MACHINE, lab, RT, psych nurse, social media analyst, mechanical inspector, teacher, morale officer, case finishing machine adjuster)? Give summary @ -No Was smoking cessation discussed for >3mins.? @ -No Was critical care preformed (if so, how long)? @ -No Were there social determinants of health that impacted care today? How? (Homelessness, low income, unemployed, alcoholism, drug addiction, transportation, low edu. Level, literacy, decrease access to med. care, senior care, re hab)? @ -No Was there de-escalation of care discussed even if they declined (Discuss DNR or withdrawal of care, Hospice)? DNR status @ -No What co-morbidities impacted this encounter? (DM, HTN, Smoking, COPD, CAD, Cancer, CVA, ARF, Chemo, Hep., AIDS, mental health diagnosis, sleep apnea, morbid obesity)? @ -None Was patient admitted / discharged? Hospital course, mention meds given and route, prescriptions, significant lab abnormalities, going to OR and other pertinent info. @ -Discharge. Patient presented to the emergency department for evaluation of cough, chest congestion, wheezing, sternal pain. Patient reports that he had RSV recently and had similar symptoms at that time including the cough and the pain. COVID, influenza, RSV negative today. Chest x-ray obtained shows no acut e process. EKG shows normal sinus rhythm. Laboratory studies obtained. CBC shows WBC 9.8, hemoglobin 17.0, hematocrit 48.1; CMP shows sodium 137, testing 4.3, CO2 19, creatinine 0.65; negative troponin. On examination, patient has significant wheezes throughout. Patient received a DuoNeb treatment which he states improved his breathing slightly. Patient received a dose of IV steroids at [facility] this morning. Discussed treatment with short course of oral steroid and albuterol inhaler. Patient understanding agreeable with plan. Patient stable at time of discharge. Case discussed with Dr. Berrios. Undiagnosed new problem with uncertain prognosis? @ -No Drug Therapy requiring intensive monitoring for toxicity (Heparin, Nitro, Insulin, Cardizem)? @ -No Were any procedures done? @ -No Diagnosis/symptom? @ -Bronchitis Acute, or Chronic, or Acute on Chronic? @ -Acute Uncomplicated (without systemic symptoms) or Complicated (systemic symptoms)? @ -Uncomplicated Side effects of treatment? @ -No Exacerbation, Progression, or Severe Exacerbation? @ -No Poses a threat to life or bodily function? How? (Chest pain, [place], [place], pneumonia, PE, COPD, DKA, ARF, appy, cholecystitis, CVA, Diverticulitis, Homicidal, Suicidal, threat to staff... and all critical care pts) @ -No - Lab Data Result diagrams: 11/21/23 11:19 11/21/23 11:19 Lab Results 11/21/23 11/21/23 11/21/23 Range/Units 10:30 11:19 11:19 WBC 9.8 (3.8-10.6) k/uL RBC 5.13 (4.30-5.90) m/uL Hgb 17.0 (13.0-17.5) gm/dL Hct 48.1 (39.0-53.0) % MCV 93.8 (80.0-100.0) fL MCH 33.2 (25.0-35.0) pg MCHC 35.4 (31.0-37.0) g/dL RDW 12.0 (11.5-15.5) % Plt Count 231 (150-450) k/uL MPV 7.0 Neutrophils % 88 % Lymphocytes % 10 % Monocytes % 1 % Eosinophils % 0 % Basophils % 0 % Neutrophils # 8.5 H (1.3-7.7) k/uL Lymphocytes # 1.0 (1.0-4.8) k/uL Monocytes # 0.1 (0-1.0) k/uL Eosinophils # 0.0 (0-0.7) k/uL Basophils # 0.0 (0-0.2) k/uL PT 10.1 (10.0-12.5) sec INR 0.9 (<1.2) APTT 32.3 H (22.0-30.0) sec Sodium (137-145) mmol/L Potassium (3.5-5.1) mmol/L Chloride (98-107) mmol/L Carbon Dioxide (22-30) mmol/L Anion Gap mmol/L BUN (9-20) mg/dL Creatinine (0.66-1.25) mg/dL Est GFR (CKD-EPI)AfAm (>60 ml/min/1.73 sqM) Est GFR (CKD-EPI)NonAf (>60 ml/min/1.73 sqM) Glucose (74-99) mg/dL Calcium (8.4-10.2) mg/dL Total Bilirubin (0.2-1.3) mg/dL AST (17-59) U/L ALT (4-49) U/L Alkaline Phosphatase (38-126) U/L Troponin I (0.000-0.034) ng/mL Total Protein (6.3-8.2) g/dL Albumin (3.5-5.0) g/dL Lipase (23-300) U/L Influenza Type A (PCR) Not Detected (Not Detectd) Influenza Type B (PCR) Not Detected (Not Detectd) RSV (PCR) Not Detected (Not Detectd) SARS-CoV-2 (PCR) Not Detected (Not Detectd) 11/21/23 11/21/23 11/21/23 Range/Units 11:19 11:19 11:19 WBC (3.8-10.6) k/uL RBC (4.30-5.90) m/uL Hgb (13.0-17.5) gm/dL Hct (39.0-53.0) % MCV (80.0-100.0) fL MCH (25.0-35.0) pg MCHC (31.0-37.0) g/dL RDW (11.5-15.5) % Plt Count (150-450) k/uL MPV Neutrophils % % Lymphocytes % % Monocytes % % Eosinophils % % Basophils % % Neutrophils # (1.3-7.7) k/uL Lymphocytes # (1.0-4.8) k/uL Monocytes # (0-1.0) k/uL Eosinophils # (0-0.7) k/uL Basophils # (0-0.2) k/uL PT (10.0-12.5) sec INR (<1.2) APTT (22.0-30.0) sec Sodium 137 (137-145) mmol/L Potassium 4.3 (3.5-5.1) mmol/L Chloride 109 H (98-107) mmol/L Carbon Dioxide 19 L (22-30) mmol/L Anion Gap 9 mmol/L BUN 17 (9-20) mg/dL Creatinine 0.65 L (0.66-1.25) mg/dL Est GFR (CKD-EPI)AfAm >90 (>60 ml/min/1.73 sqM) Est GFR (CKD-EPI)NonAf >90 (>60 ml/min/1.73 sqM) Glucose 123 H (74-99) mg/dL Calcium 9.1 (8.4-10.2) mg/dL Total Bilirubin 0.6 (0.2-1.3) mg/dL AST 36 (17-59) U/L ALT 43 (4-49) U/L Alkaline Phosphatase 102 (38-126) U/L Troponin I <0.012 (0.000-0.034) ng/mL Total Protein 7.6 (6.3-8.2) g/dL Albumin 4.5 (3.5-5.0) g/dL Lipase 38 (23-300) U/L Influenza Type A (PCR) (Not Detectd) Influenza Type B (PCR) (Not Detectd) RSV (PCR) (Not Detectd) SARS-CoV-2 (PCR) (Not Detectd) Disposition Clinical Impression: Bronchitis Disposition: HOME SELF-CARE Condition: Stable Instructions (If sedation given, give patient instructions): Acute Bronchitis (ED) Additional Instructions: Please follow up with your primary care provider. Return to the emergency department for new or worsening symptoms. Prescriptions: predniSONE 50 mg PO DAILY #5 tab Albuterol Inhaler [Ventolin Hfa Inhaler] 1 puff INHALATION QID #8 gm Is patient prescribed a controlled substance at d/c from ED?: No Referrals: Bhargav Sosa DO [Primary Care Provider] - 1-2 days
[2023-11-21 11:56] LABS: ALT 43 U/L (4-49); AST 36 U/L (17-59); African American GFR (CKD) >90 (>60 ml/min/1.73 sqM); Albumin 4.5 g/dL (3.5-5.0); Alkaline Phosphatase 102 U/L (38-126); Anion Gap 9 mmol/L; Blood Urea Nitrogen 17 mg/dL (9-20); Calcium 9.1 mg/dL (8.4-10.2); Carbon Dioxide 19 mmol/L (22-30); Chloride 109 mmol/L (98-107); Glucose 123 mg/dL (74-99); Non-African American GFR(CKD) >90 (>60 ml/min/1.73 sqM); Potassium 4.3 mmol/L (3.5-5.1); Sodium 137 mmol/L (137-145); Total Bilirubin 0.6 mg/dL (0.2-1.3); Total Protein 7.6 g/dL (6.3-8.2)
[2023-11-21 12:06] LABS: Basophils % (A) 0 %; Eosinophils % (A) 0 %; HCT 48.1 % (39.0-53.0); Lymphocytes % (A) 10 %; MCH 33.2 pg (25.0-35.0); MCHC 35.4 g/dL (31.0-37.0); MCV 93.8 fL (80.0-100.0); Monocytes # (A) 0.1 k/uL (0-1.0); Monocytes % (A) 1 %; Neutrophils # (A) 8.5 k/uL (1.3-7.7); Neutrophils % (A) 88 %; Platelet Count 231 k/uL (150-450); RBC 5.13 m/uL (4.30-5.90); WBC 9.8 k/uL (3.8-10.6)
[2023-11-21] MEDS ORDERED: ONDANSETRON 4 MG/2 ML VIAL IVP STA (12:09)
[2023-11-21 12:10] LABS: INR 0.9 (<1.2); Partial Thromboplastin Time 32.3 sec (22.0-30.0); Prothrombin Time 10.1 sec (10.0-12.5)
[2023-11-21 14:37] VITALS: BP 130/68; PULSE 70; RESP 17; TEMP 97.8
== END 2023-11-21 14:00 | disposition home or self-care (01) ==
LOC: EC 10:18
DX: J40 Bronchitis, not specified as acute or chronic (principal); F17.200 Nicotine dependence, unspecified, uncomplicated; F12.90 Cannabis use, unspecified, uncomplicated; Z86.59 Personal history of other mental and behavioral disorders; Z20.822 Contact with and (suspected) exposure to COVID-19
CPT/HCPCS: 36415; 94640; 93005; 80053; 83690; 84484; 85025; 85610; 85730; 87636; 71046; 99284; 96374; J2405

== ENCOUNTER 2023-11-22 10:58 | Inpatient (IN) | payer OTHER ==
[2023-11-22] MEDS ORDERED: SODIUM CHLORIDE 0.9% 1,000 ML IV STA ×2 (11:39)
[2023-11-22] MEDS ORDERED: HYDROmorphone 1 MG/ML 1 ML SYRINGE IVP STA (11:39)
[2023-11-22] MEDS ORDERED: SODIUM CHLORIDE 0.9% 500 ML 500 ML IV STA (11:39)
[2023-11-22] MEDS ORDERED: ONDANSETRON 4 MG/2 ML VIAL IVP STA (11:39)
[2023-11-22 11:57] LABS: Basophils # (A) 0.1 k/uL (0-0.2); Basophils % (A) 0 %; Eosinophils # (A) 0.1 k/uL (0-0.7); Eosinophils % (A) 1 %; HCT 46.9 % (39.0-53.0); HGB 16.5 gm/dL (13.0-17.5); Lymphocytes # (A) 3.7 k/uL (1.0-4.8); Lymphocytes % (A) 25 %; MCH 33.1 pg (25.0-35.0); MCHC 35.2 g/dL (31.0-37.0); Monocytes # (A) 0.7 k/uL (0-1.0); Monocytes % (A) 4 %; Neutrophils # (A) 10.1 k/uL (1.3-7.7); Neutrophils % (A) 68 %; Platelet Count 242 k/uL (150-450); RBC 4.99 m/uL (4.30-5.90); RDW 12.1 % (11.5-15.5); WBC 14.8 k/uL (3.8-10.6)
[2023-11-22 12:07] LABS: ALT 40 U/L (4-49); AST 31 U/L (17-59); African American GFR (CKD) >90 (>60 ml/min/1.73 sqM); Albumin 4.4 g/dL (3.5-5.0); Alkaline Phosphatase 80 U/L (38-126); Anion Gap 8 mmol/L; Blood Urea Nitrogen 17 mg/dL (9-20); Carbon Dioxide 26 mmol/L (22-30); Chloride 106 mmol/L (98-107); Glucose 107 mg/dL (74-99); Lipase 42 U/L (23-300); Magnesium 2.1 mg/dL (1.6-2.3); Non-African American GFR(CKD) >90 (>60 ml/min/1.73 sqM); Potassium 3.8 mmol/L (3.5-5.1); Sodium 140 mmol/L (137-145); Total Bilirubin 0.7 mg/dL (0.2-1.3); Total Protein 7.5 g/dL (6.3-8.2)
[2023-11-22 12:33] LABS: Partial Thromboplastin Time 29.3 sec (22.0-30.0); Prothrombin Time 10.6 sec (10.0-12.5)
--- NOTE | 2023-11-22 12:45 | ED ---
Recheck HPI - General Chief Complaint: Abdominal Pain Stated Complaint: Upper Abd Pain Time Seen by Provider: 11/22/23 11:22 Source: patient, RN notes reviewed, old records reviewed Mode of arrival: ambulatory Limitations: no limitations - History of Present Illness Initial Comments: This is a 38-year-old male presenting is a bounce back for year visit yesterday for abdominal pain severe. A she was having persistent severe abdominal pain here in the ER with active nausea and vomiting. Patient has no fevers no travel show sick contacts but had RSV a month ago which was severely debilitating. Patient having persistent severe abdominal pain here in the ER MD Complaint: abnormal lab -: days(s) Returns Today for: persistent/worsening pain related to initial visit Symptoms Since Prior Visit: worsening pain Context: planned re-check Associated Symptoms: none Treatments Prior to Arrival: other - Related Data Home Medications Medication Instructions Recorded Confirmed Albuterol Inhaler [Ventolin Hfa 2 puff INHALATION DIRECTED PRN 11/22/23 11/22/23 Inhaler] Ibuprofen [Motrin Ib] 800 mg PO Q8H PRN 11/22/23 11/22/23 Penicillin V Potassium [Pen Vee K] 500 mg PO DIRECTED 11/22/23 11/22/23 predniSONE 50 mg PO DIRECTED 11/22/23 11/22/23 Previous Rx's Medication Instructions Recorded Pantoprazole [Protonix] 40 mg PO DAILY 14 Days #14 tab 11/24/23 Allergies Allergy/AdvReac Type Severity Reaction Status Date / Time No Known Allergies Allergy Verified 11/22/23 12:06 Review of Systems ROS Statement: Those systems with pertinent positive or pertinent negative responses have been documented in the HPI. ROS Other: All systems not noted in ROS Statement are negative. Past Medical History Past Medical History: No Reported History Additional Past Medical History / Comment(s): back pain History of Any Multi-Drug Resistant Organisms: None Reported Past Surgical History: Appendectomy, Cholecystectomy Past Psychological History: Anxiety Smoking Status: Current every day smoker Past Alcohol Use History: Occasional Past Drug Use History: Marijuana General Exam Limitations: no limitations General appearance: alert, in no apparent distress, anxious Head exam: Present: atraumatic, normocephalic, normal inspection Eye exam: Present: normal appearance, PERRL, EOMI. Absent: scleral icterus, conjunctival injection, periorbital swelling ENT exam: Present: normal exam, mucous membranes moist Neck exam: Present: normal inspection. Absent: tenderness, meningismus, lymphadenopathy Respiratory exam: Present: normal lung sounds bilaterally. Absent: respiratory distress, wheezes, rales, rhonchi, stridor Cardiovascular Exam: Present: regular rate, normal rhythm, normal heart sounds. Absent: systolic murmur, diastolic murmur, rubs, gallop, clicks GI/Abdominal exam: Present: soft, normal bowel sounds. Absent: distended, tenderness, guarding, rebound, rigid Extremities exam: Present: normal inspection, full ROM, normal capillary refill. Absent: tenderness, pedal edema, joint swelling, calf tenderness Back exam: Present: normal inspection Neurological exam: Present: alert, oriented X3, CN II-XII intact Psychiatric exam: Present: normal affect, normal mood Skin exam: Present: warm, dry, intact, normal color. Absent: rash Course Vital Signs 11/22/23 11:01 Temperature 98 F Pulse Rate 71 Respiratory 20 Rate Blood Pressure 129/76 O2 Sat by Pulse 97 Oximetry - Reevaluation(s) Reevaluation #1: 11/22/23 15:13 Medical record is reviewed Reevaluation #2: 11/22/23 15:15 Patient symptoms are improving Reevaluation #3: 11/22/23 15:15 Patient informed of results and questions answered Reevaluation #4: 11/22/23 15:13 Was pt. sent in by a medical professional or institution (, PA, RN ELIGIBILITY, urgent care, hospital, or detention...) When possible be specific @ -no Did you speak to anyone other than the patient for history (EMS, parent, family, police, friend...)? What history was obtained from this source @ -no Did you review nursing and triage notes (agree or disagree)? Why? @ -agree Are old charts reviewed (outside hosp., previous admission, EMS record, old EKG, old radiological studies, urgent care reports/EKG's, detention records)? Report findings @ -yes Differential Diagnosis (chest pain, altered mental status, abdominal pain women, abdominal pain men, vaginal bleeding, weakness, fever, dyspnea, syncope, headache, dizziness, GI bleed, back pain, seizure, CVA, palpatations, mental health, musculoskeletal)? @ -prior EKG interpreted by me (3pts min.). @ -yes X-rays interpreted by me (1pt min.). @ -no CT interpreted by me (1pt min.). @ -yes positive for ileus U/S interpreted by me (1pt. min.). @ -no What testing was considered but not performed or refused? (CT, X-rays, U/S, labs)? Why? @ -none What meds were considered but not given or refused? Why? @ -none Did you discuss the management of the patient with other professionals (professionals i.e. DrRandy, PA, RN ELIGIBILITY, lab, RT, psych nurse, secondary social studies teacher, canceling machine operator, teacher, aoc director combat plans officer, bilingual case manager)? Give summary @ -no Was smoking cessation discussed for >3mins.? @ -no Was critical care preformed (if so, how long)? @ -no Were there social determinants of health that impacted care today? How? (Homelessness, low income, unemployed, alcoholism, drug addiction, transportation, low edu. Level, literacy, decrease access to med. care, shelter, rehab)? @ -none Was there de-escalation of care discussed even if they declined (Discuss DNR or withdrawal of care, Hospice)? DNR status @ -no What co-morbidities impacted this encounter? (DM, HTN, Smoking, COPD, CAD, Cancer, CVA, ARF, Chemo, Hep., AIDS, mental health diagnosis, sleep apnea, morbid obesity)? @ -none Was patient admitted / discharged? Hospital course, mention meds given and route, prescriptions, significant lab abnormalities, going to OR and other pertinent info. @ - 38 male to the ER for evaluation with significant of persistent abdominal pain with nausea vomiting. Patient be admitted for nothing by mouth status as he is found to have an ileus here in the emergency department Undiagnosed new problem with uncertain prognosis? @ -no Drug Therapy requiring intensive monitoring for toxicity (Heparin, Nitro, Insulin, Cardizem)? @ -no Were any procedures done? @ -no Diagnosis/symptom? @ -Ileus Acute, or Chronic, or Acute on Chronic? @ -Acute Uncomplicated (without systemic symptoms) or Complicated (systemic symptoms)? @ -Complicated Side effects of treatment? @ -no Exacerbation, Progression, or Severe Exacerbation? @ -exacerbation Poses a threat to life or bodily function? How? (Chest pain, USA, VT, pneumonia, PE, COPD, DKA, ARF, appy, cholecystitis, CVA, Diverticulitis, Homicidal, Suicidal, threat to staff... and all critical care pts) @ -yes positive for ileus and small bowel obstruction pending Reevaluation #5: 11/22/23 15:13 Differential Abdominal Pain Men: Appendicitis, cholecystitis, diverticulosis, ischemic bowel, pancreatitis, hepatitis, UTI, gastroenteritis, AAA, incarcerated hernia, bowel obstruction, constipation, inflammatory bowel, hepatitis, peptic ulcer disease, splenic infarction, perforated viscus, testicular torsion, this is not meant to be an all-inclusive list - Consultations Consultation #1: Spoke with admitting physicians agree to admit this patient Medical Decision Making - Medical Decision Making 38 male to the ER for evaluation with significant of persistent abdominal pain with nausea vomiting. Patient be admitted for nothing by mouth status as he is found to have an ileus here in the emergency department - Lab Data Result diagrams: 11/24/23 08:08 11/23/23 05:53 Lab Results 11/22/23 11/22/23 11/22/23 Range/Units 11:44 11:44 11:44 WBC 14.8 H (3.8-10.6) k/uL RBC 4.99 (4.30-5.90) m/uL Hgb 16.5 (13.0-17.5) gm/dL Hct 46.9 (39.0-53.0) % MCV 94.0 (80.0-100.0) fL MCH 33.1 (25.0-35.0) pg MCHC 35.2 (31.0-37.0) g/dL RDW 12.1 (11.5-15.5) % Plt Count 242 (150-450) k/uL MPV 7.0 Neutrophils % 68 % Lymphocytes % 25 % Monocytes % 4 % Eosinophils % 1 % Basophils % 0 % Neutrophils # 10.1 H (1.3-7.7) k/uL Lymphocytes # 3.7 (1.0-4.8) k/uL Monocytes # 0.7 (0-1.0) k/uL Eosinophils # 0.1 (0-0.7) k/uL Basophils # 0.1 (0-0.2) k/uL PT 10.6 (10.0-12.5) sec INR 1.0 (<1.2) APTT 29.3 (22.0-30.0) sec D-Dimer 0.25 (<0.60) mg/L FEU Sodium 140 (137-145) mmol/L Potassium 3.8 (3.5-5.1) mmol/L Chloride 106 (98-107) mmol/L Carbon Dioxide 26 (22-30) mmol/L Anion Gap 8 mmol/L BUN 17 (9-20) mg/dL Creatinine 0.73 (0.66-1.25) mg/dL Est GFR (CKD-EPI)AfAm >90 (>60 ml/min/1.73 sqM) Est GFR (CKD-EPI)NonAf >90 (>60 ml/min/1.73 sqM) Glucose 107 H (74-99) mg/dL Calcium 9.0 (8.4-10.2) mg/dL Magnesium 2.1 (1.6-2.3) mg/dL Total Bilirubin 0.7 (0.2-1.3) mg/dL AST 31 (17-59) U/L ALT 40 (4-49) U/L Alkaline Phosphatase 80 (38-126) U/L Troponin I (0.000-0.034) ng/mL Total Protein 7.5 (6.3-8.2) g/dL Albumin 4.4 (3.5-5.0) g/dL Lipase 42 (23-300) U/L 11/22/23 Range/Units 11:44 WBC (3.8-10.6) k/uL RBC (4.30-5.90) m/uL Hgb (13.0-17.5) gm/dL Hct (39.0-53.0) % MCV (80.0-100.0) fL MCH (25.0-35.0) pg MCHC (31.0-37.0) g/dL RDW (11.5-15.5) % Plt Count (150-450) k/uL MPV Neutrophils % % Lymphocytes % % Monocytes % % Eosinophils % % Basophils % % Neutrophils # (1.3-7.7) k/uL Lymphocytes # (1.0-4.8) k/uL Monocytes # (0-1.0) k/uL Eosinophils # (0-0.7) k/uL Basophils # (0-0.2) k/uL PT (10.0-12.5) sec INR (<1.2) APTT (22.0-30.0) sec D-Dimer (<0.60) mg/L FEU Sodium (137-145) mmol/L Potassium (3.5-5.1) mmol/L Chloride (98-107) mmol/L Carbon Dioxide (22-30) mmol/L Anion Gap mmol/L BUN (9-20) mg/dL Creatinine (0.66-1.25) mg/dL Est GFR (CKD-EPI)AfAm (>60 ml/min/1.73 sqM) Est GFR (CKD-EPI)NonAf (>60 ml/min/1.73 sqM) Glucose (74-99) mg/dL Calcium (8.4-10.2) mg/dL Magnesium (1.6-2.3) mg/dL Total Bilirubin (0.2-1.3) mg/dL AST (17-59) U/L ALT (4-49) U/L Alkaline Phosphatase (38-126) U/L Troponin I <0.012 (0.000-0.034) ng/mL Total Protein (6.3-8.2) g/dL Albumin (3.5-5.0) g/dL Lipase (23-300) U/L - EKG Data -: EKG Interpreted by Me (EKG is sinus 63 KS 130 QRS 80 QTc 399) - Radiology Data Radiology results: report reviewed (CT angiogram abdomen pelvis positive for ileus), image reviewed Disposition Clinical Impression: Abdominal pain, Ileus, Chest pain Disposition: ADMITTED IP TO THIS [facility] Condition: Fair Is patient prescribed a controlled substance at d/c from ED?: No Time of Disposition: 14:00
--- NOTE | 2023-11-22 12:47 | CT ---
CTA CHEST EXAMINATION TYPE: CT angio chest DATE OF EXAM: 11/22/2023 INDICATION: epigastric pain CT DLP: 736.1 mGycm, Automated exposure control for dose reduction was used. CONTRAST: Patient injected with 100 mL of Isovue 370. COMPARISON: None TECHNIQUE: CT of the chest is performed on a spiral scan at 2 mm thick sections. Study is performed with intravenous contrast timed for evaluation for pulmonary embolism. This will limit additional po rtions of the evaluation. 3-D MIP images reconstructed by the technologist are reviewed on the compu ter in the coronal and sagittal planes. FINDINGS: No persistent filling defects are evident to suggest an acute pulmonary embolism. No mediastinal or hilar adenopathy enlarged by CT criteria is evident. There are a few scattered smal l lymph nodes within the mediastinum. The ascending aorta diameter at the level of the main pulmonar y artery is 2.7 cm. The main pulmonary artery diameter at the bifurcation is 2.6 cm. Lung windows are clear. See CT abdomen and pelvis findings for additional findings. IMPRESSION: 1. No acute pulmonary embolism.
--- NOTE | 2023-11-22 12:55 | CT ---
EXAMINATION TYPE: CT abdomen pelvis w con DATE OF EXAM: 11/22/2023 COMPARISON: None INDICATION: epigastric pain DLP: 2117.9 mGycm, Automated exposure control for dose reduction was used. CONTRAST: 100 mL of Isovue 370. Study performed without Oral Contrast TECHNIQUE: Axial images were obtained from above the diaphragm to the pubic rami in the axial plane a t 5 mm thick sections. Reconstructed images are reviewed on the computer in the coronal plane. FINDINGS: Limited CT sections are obtained the lung bases. The lung bases are clear. CT ABDOMEN: Liver: There is mild diffuse fatty infiltration of the liver. Spleen: Normal Pancreas: Normal Adrenal glands: The adrenal glands are normal. Gallbladder: Surgically absent Kidneys: No masses are evident. No hydronephrosis is present. No cysts are present. Delayed images were obtained through the kidneys, which remain unremarkable. Aorta: Normal Inferior vena cava: Normal. CT PELVIS: Loops of bowel within the abdomen and pelvis are normal. This study is without oral contrast limi ting bowel evaluation. There may be some minimally prominent small bowel loops containing fluid withi n the midabdomen. Consider focal ileus. Obstruction is not identified. Appendix: Surgically absent Urinary bladder: Normal. Genitourinary structures: Prostate is prominent Osseous structures: No suspicious lytic or sclerotic lesions. IMPRESSION: 1. Some minimal focal ileus within the midabdomen is not excluded. Bowel otherwise appears unremarka ble. 2. No suspicious abnormalities account for abdomen pain otherwise evident.
[2023-11-22] MEDS ORDERED: NALOXONE 0.4 MG/ML 1 ML VIAL IV PRN (14:06)
[2023-11-22] MEDS ORDERED: ONDANSETRON 4 MG/2 ML VIAL IVP PRN (14:06)
--- NOTE | 2023-11-22 15:10 | P.GSCN ---
History of Present Illness Consult date: 11/22/23 History of present illness: CHIEF COMPLAINT: Abdominal pain HISTORY OF PRESENT ILLNESS: This is a 38-year-old male who presented to the hospital with complaints of abdominal pain across upper abdomen x 2 days. Patient reports that he has been sick with RSV a few weeks ago and then has continued to have a productive cough. He came into the ER yesterday and was diagnosed with bronchitis. He presents back to the emergency room due to sharp abdominal pain and now having vomiting. He reports his last bowel movement was 2 days ago. He is having flatus. He reports decreased appetite. CT scan of the abdomen had revealed ileus. He did have a CT of the chest which was negative for PE. White count is elevated. Past surgical history includes appendectomy and cholecystectomy. He has never had a colonoscopy or EGD. Surgical consult placed for ileus. PAST MEDICAL HISTORY: Diverticulitis PAST SURGICAL HISTORY: Appendectomy and cholecystectomy MEDICATIONS: See below ALLERGIES: See below SOCIAL HISTORY: No illicit drug use. Nicotine dependence REVIEW OF SYSTEMS: CONSTITUTIONAL: Denies fever or chills. HEENT: Denies blurred vision, vision changes, or eye pain. Denies hemoptysis CARDIOVASCULAR: Denies chest pain or pressure. RESPIRATORY: No shortness of breath. GASTROINTESTINAL: See HPI for pertinent findings HEMATOLOGIC: Denies bleeding disorders. GENITOURINARY: Denies any blood in urine or increased urinary frequency. SKIN: Denies pruitis. Denies rash. PHYSICAL EXAM: VITAL SIGNS: Reviewed GENERAL: Well-developed in no acute distress. HEENT: No sclera icterus. Extraocular movements grossly intact. Moist buccal mucosa. Head is atraumatic, normocephalic. No nasal drainage. ABDOMEN: Soft. Nondistended. Epigastric and left upper quadrant tenderness with palpation NEUROLOGIC: Alert and oriented. Cranial nerves II through XII grossly intact. LABORATORY DATA: WBC 14.8 Hgb 16.5 platelets 242 Sodium 140 potassium 3.8 creatinine 0.73 Glucose 107 magnesium is 2.1 LFTs normal lipase 42 Troponin negative D-dimer 0.25 IMAGING: CT scan abdomen pelvis some minimal focal ileus within the mid abdomen not excluded. Bowel otherwise appears unremarkable. No suspicious abnormalities account for abdomen pain. Chest CTA negative for PE ASSESSMENT: 1. Epigastric and Left upper quadrant abdominal pain with vomiting 2. Possible abdominal ileus 3. Bronchitis and recent RSV PLAN: -Keep patient NPO -Continue IV fluids -Continue antiemetics -Continue pain management Thank you for this consultation Physician Glassblower note has been reviewed by physician. Signing provider agrees with the documented findings, assessment, and plan of care. Past Medical History Past Medical History: No Reported History Additional Past Medical History / Comment(s): back pain History of Any Multi-Drug Resistant Organisms: None Reported Past Surgical History: Appendectomy, Cholecystectomy Past Psychological History: Anxiety Smoking Status: Current every day smoker Past Alcohol Use History: Occasional Past Drug Use History: Marijuana Medications and Allergies Home Medications Medication Instructions Recorded Confirmed Type Albuterol Inhaler [Ventolin Hfa 2 puff INHALATION DIRECTED PRN 11/22/23 11/22/23 History Inhaler] Ibuprofen [Motrin Ib] 800 mg PO Q8H PRN 11/22/23 11/22/23 History Penicillin V Potassium [Pen Vee K] 500 mg PO DIRECTED 11/22/23 11/22/23 History predniSONE 50 mg PO DIRECTED 11/22/23 11/22/23 History Allergies Allergy/AdvReac Type Severity Reaction Status Date / Time No Known Allergies Allergy Verified 11/22/23 12:06 Surgical - Exam Vital Signs Temp Pulse Resp BP Pulse Ox 98 F 71 20 129/76 97 11/22/23 11:01 11/22/23 11:01 11/22/23 11:01 11/22/23 11:01 11/22/23 11:01 Results - Labs 11/22/23 11:44 11/22/23 11:44 Abnormal Lab Results - Last 24 Hours (Table) 11/22/23 11/22/23 Range/Units 11:44 11:44 WBC 14.8 H (3.8-10.6) k/uL Neutrophils # 10.1 H (1.3-7.7) k/uL Glucose 107 H (74-99) mg/dL Diabetes panel 11/22/23 Range/Units 11:44 Sodium 140 (137-145) mmol/L Potassium 3.8 (3.5-5.1) mmol/L Chloride 106 (98-107) mmol/L Carbon Dioxide 26 (22-30) mmol/L BUN 17 (9-20) mg/dL Creatinine 0.73 (0.66-1.25) mg/dL Glucose 107 H (74-99) mg/dL Calcium 9.0 (8.4-10.2) mg/dL AST 31 (17-59) U/L ALT 40 (4-49) U/L Alkaline Phosphatase 80 (38-126) U/L Total Protein 7.5 (6.3-8.2) g/dL Albumin 4.4 (3.5-5.0) g/dL Calcium panel 11/22/23 Range/Units 11:44 Calcium 9.0 (8.4-10.2) mg/dL Albumin 4.4 (3.5-5.0) g/dL Pituitary panel 11/22/23 Range/Units 11:44 Sodium 140 (137-145) mmol/L Potassium 3.8 (3.5-5.1) mmol/L Chloride 106 (98-107) mmol/L Carbon Dioxide 26 (22-30) mmol/L BUN 17 (9-20) mg/dL Creatinine 0.73 (0.66-1.25) mg/dL Glucose 107 H (74-99) mg/dL Calcium 9.0 (8.4-10.2) mg/dL Adrenal panel 11/22/23 Range/Units 11:44 Sodium 140 (137-145) mmol/L Potassium 3.8 (3.5-5.1) mmol/L Chloride 106 (98-107) mmol/L Carbon Dioxide 26 (22-30) mmol/L BUN 17 (9-20) mg/dL Creatinine 0.73 (0.66-1.25) mg/dL Glucose 107 H (74-99) mg/dL Calcium 9.0 (8.4-10.2) mg/dL Total Bilirubin 0.7 (0.2-1.3) mg/dL AST 31 (17-59) U/L ALT 40 (4-49) U/L Alkaline Phosphatase 80 (38-126) U/L Total Protein 7.5 (6.3-8.2) g/dL Albumin 4.4 (3.5-5.0) g/dL
[2023-11-22] MEDS: MORPHINE SULFATE 4 MG/ML SYRINGE IV PRN ×2 (16:55→21:22)
[2023-11-22] MEDS: SODIUM CHLORIDE 0.9% 1,000 ML IV SCH ×2 (16:56→23:09)
[2023-11-22] MEDS: METOCLOPRAMIDE 5 MG/ML 2 ML VIAL IVP SCH ×2 (17:00→23:54)
[2023-11-23] MEDS: MORPHINE SULFATE 4 MG/ML SYRINGE IV PRN ×4 (01:08→20:52)
[2023-11-23] MEDS: SODIUM CHLORIDE 0.9% 1,000 ML IV SCH ×4 (05:14→23:04)
[2023-11-23] MEDS: METOCLOPRAMIDE 5 MG/ML 2 ML VIAL IVP SCH ×4 (05:14→23:04)
[2023-11-23] MEDS: PANTOPRAZOLE 40 MG/10 ML VIAL IV SCH (08:56)
[2023-11-23 11:10] LABS: Basophils # (A) 0.04 X 10*3/uL (0.00-0.10); Basophils % (A) 0.4 %; Eosinophils # (A) 0.11 X 10*3/uL (0.04-0.35); HCT 42.7 % (39.6-50.0); HGB 14.5 g/dL (13.0-17.0); Lymphocytes # (A) 4.12 X 10*3/uL (0.90-5.00); Lymphocytes % (A) 36.9 %; MCH 32.3 pg (27.0-32.0); MCV 95.1 FL (80.0-97.0); Mean Platelet Volume 9.6 FL (9.5-12.2); Monocytes # (A) 0.69 X 10*3/uL (0.20-1.00); Monocytes % (A) 6.2 %; NRBC Per 100 WBC 0 X 10*3/uL (0.00-0.01); Neutrophils # (A) 6.18 X 10*3/uL (1.80-7.70); Neutrophils % (A) 55.3 %; Platelet Count 226 X 10*3/uL (140-440); RBC 4.49 X 10*6/uL (4.40-5.60); RDW 12.2 % (11.5-14.5); WBC 11.16 X 10*3/uL (4.50-10.00)
[2023-11-23 11:44] LABS: ALT 40 U/L (10-49); AST 27 U/L (14-35); Albumin/Globulin Ratio 1.82 Ratio (1.60-3.17); Alkaline Phosphatase 71 U/L (41-126); BUN/Creat Ratio 19.67 Ratio (12.00-20.00); Blood Urea Nitrogen 17.7 mg/dL (9.0-27.0); Calcium 8.6 mg/dL (8.7-10.3); Carbon Dioxide 25.5 mmol/L (21.6-31.8); Chloride 106 mmol/L (96-109); Globulin 2.2 g/dL (1.6-3.3); Glucose 78 mg/dL (70-110); Magnesium 2.1 mg/dL (1.5-2.4); Phosphorus 3.5 mg/dL (2.4-5.1); Potassium 4.1 mmol/L (3.5-5.5); Sodium 143 mmol/L (135-145); Total Bilirubin 0.5 mg/dL (0.3-1.2); Total Protein 6.2 g/dL (6.2-8.2)
--- NOTE | 2023-11-23 13:11 | P.HPIM ---
History of Present Illness H&P Date: 11/23/23 History of present illness; patient is a 38-year-old gentleman who was brought t o the ER for abdominal pain. Patient was only recently seen in the ER one day prior for cough and shortness of breath. Patient was recently diagnosed with RSV. This time patient has returned to the ER for Abdominal pain, located in the epigastric area. Patient also complaining of nausea and vomiting. Denies any altered bowel movements. There was no complain of any fever or chills. Initial lab work done in the ER showed WBC 14.8, hemoglobin 16.5, direct count 242, sodium 140, potassium 3.8, BUN 17, creatinine 0.73, troponin 0.012 EKG done in the ER showed heart rate of 63, no ST segment elevation or depression seen, no T-wave inversions seen. CTA chest done showed no PE CT abdominal and pelvis done showed some minimal focal ileus in the midabdominal is not excluded. Patient admitted to internal medicine service REVIEW OF SYSTEMS: CONSTITUTIONAL: No fever, no malaise, no fatigue. HEENT: No recent visual problems or hearing problems. Denied any sore throat. CARDIOVASCULAR: No chest pain, orthopnea, PND, no palpitations, no syncope. PULMONARY: No shortness of breath, no cough, no hemoptysis. GASTROINTESTINAL: As mentioned above. NEUROLOGICAL: No headaches, no weakness, no numbness. HEMATOLOGICAL: Denies any bleeding or petechiae. GENITOURINARY: Denies any burning micturition, frequency, or urgency. MUSCULOSKELETAL/RHEUMATOLOGICAL: Denies any joint pain, swelling, or any muscle pain. ENDOCRINE: Denies any polyuria or polydipsia. The rest of the 14-point review of systems is negative. PHYSICAL EXAMINATION: GENERAL: The patient is alert and oriented x3, not in any acute distress. Well developed, well nourished. HEENT: Pupils are round and equally reacting to light. EOMI. No scleral icterus. No conjunctival pallor. Normocephalic, atraumatic. No pharyngeal erythema. No thyromegaly. CARDIOVASCULAR: S1 and S2 present. No murmurs, rubs, or gallops. PULMONARY: Chest is clear to auscultation, no wheezing or crackles. ABDOMEN: Soft, nontender, nondistended, normoactive bowel sounds. No palpable organomegaly. MUSCULOSKELETAL: No joint swelling or deformity. EXTREMITIES: No cyanosis, clubbing, or pedal edema. NEUROLOGICAL: Gross neurological examination did not reveal any focal deficits. SKIN: No rashes. Assessment and plan Abdominal pain Nausea and vomiting Ileus Monitor vital signs Monitor CBC Monitor CMP Continue IV fluid Continue antiemetics Currently nothing by mouth, Advance diet as tolerated Surgery consulted Labs and medication were reviewed.. Continue same treatment. Continue with symptomatic treatment. Resume home medication. Monitor labs and vitals. DVT and GI prophylaxis. Further recommendations as per clinical course of the patient Dictation was produced using [employer] dictation software. please excuse any grammatical, word or spelling errors. Past Medical History Past Medical History: No Reported History Additional Past Medical History / Comment(s): back pain History of Any Multi-Drug Resistant Organisms: None Reported Past Surgical History: Appendectomy, Cholecystectomy Past Psychological History: Anxiety Smoking Status: Current every day smoker Past Alcohol Use History: Occasional Past Drug Use History: Marijuana Medications and Allergies Home Medications Medication Instructions Recorded Confirmed Type Albuterol Inhaler [Ventolin Hfa 2 puff INHALATION DIRECTED PRN 11/22/23 11/22/23 History Inhaler] Ibuprofen [Motrin Ib] 800 mg PO Q8H PRN 11/22/23 11/22/23 History Penicillin V Potassium [Pen Vee K] 500 mg PO DIRECTED 11/22/23 11/22/23 History predniSONE 50 mg PO DIRECTED 11/22/23 11/22/23 History Allergies Allergy/AdvReac Type Severity Reaction Status Date / Time No Known Allergies Allergy Verified 11/22/23 12:06 Physical Exam Vitals: Vital Signs Temp Pulse Resp BP Pulse Ox 11/23/23 09:49 93 L 11/23/23 08:00 98.5 F 61 17 134/78 90 L 11/23/23 02:00 98.1 F 69 18 122/75 93 L 11/22/23 20:00 98.2 F 62 18 130/82 98 Intake and Output 11/22/23 11/23/23 11/23/23 22:59 06:59 14:59 Intake Total 1560 Balance 1560 Intake: Intake, IV Titration 1560 Amount Sodium Chloride 0.9% 1, 1560 000 ml @ 130 mls/hr IV . Q7H42M [facility] Rx#:[id number] Other: # Voids 2 Weight 117.934 kg Results CBC & Chem 7: 11/22/23 11:44 11/22/23 11:44 Labs: Abnormal Lab Results - Last 24 Hours (Table) 11/22/23 11/22/23 Range/Units 11:44 11:44 WBC 14.8 H (3.8-10.6) k/uL Neutrophils # 10.1 H (1.3-7.7) k/uL Glucose 107 H (74-99) mg/dL
--- NOTE | 2023-11-23 13:43 | P.PN ---
Subjective Progress Note Date: 11/23/23 CHIEF COMPLAINT: Ileus HISTORY OF PRESENT ILLNESS: Patient reports decrease in abdominal pain and nausea. Patient reports that he feels hungry. He has had no further vomiting. Afebrile. WBC is down from 14-11.16 Hgb 14.5 PHYSICAL EXAM: VITAL SIGNS: Reviewed. GENERAL: Well-developed in no acute distress. ABDOMEN: Soft. Nondistended. Mild discomfort epigastric area NEUROLOGIC: Alert and oriented. Cranial nerves II through XII grossly intact. ASSESSMENT: 1. Epigastric and Left upper quadrant abdominal pain with vomiting improved 2. Ileus 3. Bronchitis and recent RSV PLAN: -Agree with advancing diet to clear liquids -Continue to monitor -Continue Reglan -Encourage patient to ambulate Physician [employer] Officer note has been reviewed by physician. Signing provider agrees with the documented findings, assessment, and plan of care. Objective - Vital Signs Vital signs: Vital Signs Temp 98.5 F 11/23/23 08:00 Pulse 61 11/23/23 08:00 Resp 17 11/23/23 08:00 BP 134/78 11/23/23 08:00 Pulse Ox 93 L 11/23/23 09:49 FiO2 Intake & Output 11/22/23 11/23/23 11/23/23 18:59 06:59 18:59 Intake Total 1560 Balance 1560 Weight 117.934 kg Intake: Intake, IV Titration 1560 Amount Sodium Chloride 0.9% 1, 1560 000 ml @ 130 mls/hr IV . Q7H42M GET Rx#:[id number] Other: # Voids 2 - Labs CBC & Chem 7: 11/23/23 05:53 11/23/23 05:53 Labs: Abnormal Lab Results - Last 24 Hours (Table) 11/23/23 11/23/23 Range/Units 05:53 05:53 WBC 11.16 H (4.50-10.00) X 10*3/uL MCH 32.3 H (27.0-32.0) pg Calcium 8.6 L (8.7-10.3) mg/dL
[2023-11-24] MEDS: METOCLOPRAMIDE 5 MG/ML 2 ML VIAL IVP SCH ×2 (05:12→13:22)
[2023-11-24 07:47] VITALS: RESP 20
[2023-11-24 08:34] LABS: Basophils # (A) 0.1 k/uL (0-0.2); Basophils % (A) 1 %; Eosinophils # (A) 0.2 k/uL (0-0.7); Eosinophils % (A) 2 %; HCT 43.7 % (39.0-53.0); HGB 15.7 gm/dL (13.0-17.5); Lymphocytes # (A) 2.9 k/uL (1.0-4.8); Lymphocytes % (A) 23 %; MCH 33.2 pg (25.0-35.0); MCV 92.2 fL (80.0-100.0); Monocytes # (A) 0.6 k/uL (0-1.0); Monocytes % (A) 5 %; Neutrophils # (A) 8.7 k/uL (1.3-7.7); Neutrophils % (A) 69 %; Platelet Count 246 k/uL (150-450); RBC 4.74 m/uL (4.30-5.90); RDW 11.7 % (11.5-15.5); WBC 12.6 k/uL (3.8-10.6)
[2023-11-24] MEDS: PANTOPRAZOLE 40 MG/10 ML VIAL IV SCH (08:42)
--- NOTE | 2023-11-24 12:01 | P.PN ---
Subjective Progress Note Date: 11/24/23 CHIEF COMPLAINT: Ileus HISTORY OF PRESENT ILLNESS: Patient reports he is feeling better. He had bowel movements last night. Abdominal pain has resolved. Denies any nausea or vomiting. Tolerating clear liquids. Afebrile. WBC 12.6 PHYSICAL EXAM: VITAL SIGNS: Reviewed. GENERAL: Well-developed in no acute distress. ABDOMEN: Soft. Nondistended. Nontender NEUROLOGIC: Alert and oriented. Cranial nerves II through XII grossly intact. ASSESSMENT: 1. Ileus improved 2. Bronchitis and recent RSV PLAN: -Advance diet to full liquids and then as tolerated -Patient can be discharged from surgical standpoint if tolerating advancement of diet Phys[employer] Consultant note has been reviewed by physician. Signing provider agrees with the documented findings, assessment, and plan of care. Objective - Vital Signs Vital signs: Vital Signs Temp 97.8 F 11/24/23 07:13 Pulse 68 11/24/23 07:13 Resp 20 11/24/23 07:13 BP 126/82 11/24/23 07:13 Pulse Ox 96 11/24/23 07:13 FiO2 Intake & Output 11/23/23 11/24/23 11/24/23 18:59 06:59 18:59 Intake Total 2510 Balance 2510 Intake: Intake, IV Titration 1560 Amount Sodium Chloride 0.9% 1, 1560 000 ml @ 130 mls/hr IV . Q7H42M GET Rx#:[id number] Oral 950 Other: # Voids 3 # Bowel Movements 2 - Labs CBC & Chem 7: 11/24/23 08:08 11/23/23 05:53 Labs: Abnormal Lab Results - Last 24 Hours (Table) 11/24/23 Range/Units 08:08 WBC 12.6 H (3.8-10.6) k/uL Neutrophils # 8.7 H (1.3-7.7) k/uL
--- NOTE | 2023-11-24 12:28 | P.DS ---
Providers Date of admission: 11/22/23 14:06 Expected date of discharge: 11/24/23 Attending physician: Cheryl Amezcua Consults: 11/22/23 14:06 Consult Physician Routine Consulting Provider: Julio Herman Consult Reason/Comments: ileus Do you want consulting provider notified?: Yes Primary care physician: Bhargav [facility] Course: Discharge diagnoses; Abdominal pain Nausea and vomiting Ileus Hospital course; patient is a 38-year-old gentleman who was brought to the ER for abdominal pain. Patient was only recently seen in the ER one day prior for cough and shortness of breath. Patient was recently diagnosed with RSV. This time patient has returned to the ER for Abdominal pain, located in the epigastric area. Patient also complaining of nausea and vomiting. Denies any altered bowel movements. There was no complain of any fever or chills. Initial lab work done in the ER showed WBC 14.8, hemoglobin 16.5, direct count 242, sodium 140, potassium 3.8, BUN 17, creatinine 0.73, troponin 0.012 EKG done in the ER showed heart rate of 63, no ST segment elevation or depression seen, no T-wave inversions seen. CTA chest done showed no PE CT abdominal and pelvis done showed some minimal focal ileus in the midabdominal is not excluded. Patient admitted to internal medicine service 11/24. Abdominal pain has resolved. Patient currently tolerating full liquid d iet. Being discharged in stable condition PHYSICAL EXAMINATION: GENERAL: The patient is alert and oriented x3, not in any acute distress. Well developed, well nourished. HEENT: Pupils are round and equally reacting to light. EOMI. No scleral icterus. No conjunctival pallor. Normocephalic, atraumatic. No pharyngeal erythema. No thyromegaly. CARDIOVASCULAR: S1 and S2 present. No murmurs, rubs, or gallops. PULMONARY: Chest is clear to auscultation, no wheezing or crackles. ABDOMEN: Soft, nontender, nondistended, normoactive bowel sounds. No palpable organomegaly. MUSCULOSKELETAL: No joint swelling or deformity. EXTREMITIES: No cyanosis, clubbing, or pedal edema. NEUROLOGICAL: Gross neurological examination did not reveal any focal deficits. SKIN: No rashes. Dictation was produced using [employer] software. please excuse any grammatical, word or spelling errors. Patient Condition at Discharge: Fair Plan - Discharge Summary New Discharge Prescriptions: New Pantoprazole [Protonix] 40 mg PO DAILY 14 Days #14 tab Continue Penicillin V Potassium [Pen Vee K] 500 mg PO DIRECTED Albuterol Inhaler [Ventolin Hfa Inhaler] 2 puff INHALATION DIRECTED PRN PRN Reason: Shortness Of Breath predniSONE 50 mg PO DIRECTED Ibuprofen [Motrin Ib] 800 mg PO Q8H PRN PRN Reason: Pain Or Fever > 100.5 Discharge Medication List Albuterol Inhaler [Ventolin Hfa Inhaler] 2 puff INHALATION DIRECTED PRN 11/22/23 [History] Ibuprofen [Motrin Ib] 800 mg PO Q8H PRN 11/22/23 [History] Penicillin V Potassium [Pen Vee K] 500 mg PO DIRECTED 11/22/23 [History] predniSONE 50 mg PO DIRECTED 11/22/23 [History] Pantoprazole [Protonix] 40 mg PO DAILY 14 Days #14 tab 11/24/23 [Rx] Follow up Appointment(s)/Referral(s): Bhargav Sosa DO [Primary Care Provider] - 1-2 days (Please call office for appointment to establish as a new patient.) Discharge Disposition: HOME SELF-CARE
[2023-11-24 13:34] VITALS: BP 144/78; PULSE 79; TEMP 97.9
== END 2023-11-24 13:36 | disposition home or self-care (01) | DRG 390 ==
LOC: EC 10:58 → 4SSUR 14:06
PROVIDERS: ADMIT Hospitalist; ATTEND Hospitalist
DX: K56.7 Ileus, unspecified (principal); F17.210 Nicotine dependence, cigarettes, uncomplicated; J20.5 Acute bronchitis due to respiratory syncytial virus; F41.9 Anxiety disorder, unspecified; M54.9 Dorsalgia, unspecified; Z79.899 Other long term (current) drug therapy
CPT/HCPCS: 36415; 71275; 74177; 80053; 83690; 83735; 84100; 84484; 85025; 85379; 85610; 85730; 93005; 94760; 96361; 96374; 96375; 99285

== ENCOUNTER → 2023-12-26 | Outpatient (CLI) | payer OTHER ==
--- NOTE | 2023-12-26 22:07 | XR ---
EXAMINATION TYPE: XR chest 2V, XR hand complete 3 views LT DATE OF EXAM: 12/26/2023 COMPARISON: Chest 11/21/2023 HISTORY: 38-year-old male [id number], [id number], [id number] FINDINGS: Chest: The cardiomediastinal silhouette, aorta, and pulmonary vasculature are within normal limits. Mild int erstitial prominence. Otherwise, no consolidation or pleural effusion. Left hand: No acute fracture, subluxation, or dislocation. No soft tissue calcifications or marginal erosions. IMPRESSION: 1. Chest: Mild interstitial prominence could reflect bronchitis or asthma. Otherwise, no acute cardio pulmonary process. Left hand: No acute osseous abnormality seen.
== END | disposition home or self-care (01) ==
LOC: RADXRMAIN 14:31
PROVIDERS: ATTEND Family Medicine
DX: M25.542 Pain in joints of left hand (principal); J84.9 Interstitial pulmonary disease, unspecified; R07.89 Other chest pain; F17.200 Nicotine dependence, unspecified, uncomplicated; Z63.4 Disappearance and death of family member
CPT/HCPCS: 71046

== ENCOUNTER → 2024-01-06 | Outpatient (CLI) | payer OTHER ==
[2024-01-07 07:15] LABS: Basophils # (A) 0.09 X 10*3/uL (0.00-0.10); Basophils % (A) 0.7 %; Eosinophils # (A) 0.18 X 10*3/uL (0.04-0.35); Eosinophils % (A) 1.5 %; HCT 50.2 % (39.6-50.0); HGB 17.2 g/dL (13.0-17.0); Lymphocytes # (A) 3.07 X 10*3/uL (0.90-5.00); Lymphocytes % (A) 25.1 %; MCH 33.1 pg (27.0-32.0); MCHC 34.3 g/dL (32.0-37.0); MCV 96.5 FL (80.0-97.0); Mean Platelet Volume 10.4 FL (9.5-12.2); Monocytes # (A) 0.77 X 10*3/uL (0.20-1.00); Monocytes % (A) 6.3 %; NRBC Per 100 WBC 0 X 10*3/uL (0.00-0.01); Neutrophils % (A) 66.2 %; Platelet Count 289 X 10*3/uL (140-440); WBC 12.24 X 10*3/uL (4.50-10.00)
[2024-01-07 08:52] LABS: ALT 32 U/L (10-49); AST 24 U/L (14-35); Albumin 4.4 g/dL (3.8-4.9); Albumin/Globulin Ratio 1.69 Ratio (1.60-3.17); Alkaline Phosphatase 98 U/L (41-126); BUN/Creat Ratio 14.56 Ratio (12.00-20.00); Blood Urea Nitrogen 13.1 mg/dL (9.0-27.0); Calcium 9.1 mg/dL (8.7-10.3); Carbon Dioxide 24.5 mmol/L (21.6-31.8); Chloride 102 mmol/L (96-109); Chol/HDL Ratio 5.95 Ratio; Globulin 2.6 g/dL (1.6-3.3); Glucose 84 mg/dL (70-110); LDL Cholesterol,Calculated 123.3 mg/dL (0.0-131.0); Potassium 4.2 mmol/L (3.5-5.5); Sodium 140 mmol/L (135-145); Total Bilirubin 0.4 mg/dL (0.3-1.2)
== END | disposition home or self-care (01) ==
LOC: LABWHC1 11:28
PROVIDERS: ATTEND Internal Medicine
DX: Z00.00 Encounter for general adult medical examination without abnormal findings (principal)
CPT/HCPCS: 36415; 80053; 80061; 84443; 85025

== ENCOUNTER 2024-01-31 09:19 | Day surgery (SDC) | payer OTHER ==
[2024-01-30 08:43] VITALS: BMI 42.3
[~2024-01-31 09:19] MED LIST: LIDOCAINE 1% (10MG/ML) FOR IV START INTRADERMA PRN
[2024-01-31] MEDS: LACTATED RINGERS 1,000 ML IV SCH (10:25)
[2024-01-31 10:36] VITALS: RESP 16; TEMP 97.5
[2024-01-31] MEDS ORDERED: PROPOFOL 10 MG/ML 20 ML VIAL IV ONE (11:00)
[2024-01-31] MEDS ORDERED: LIDOCAINE 1% INJ 10MG/ML (20 ML MDV) ONE (11:00)
--- NOTE | 2024-01-31 11:09 | P.PCN ---
Date of Procedure: 01/31/24 Procedure(s) Performed: BRIEF HISTORY: Patient is a 39-year-old, pleasant, white male scheduled for an upper endoscopy as a part of evaluation of GERD PROCEDURE PERFORMED: Esophagogastroduodenoscopy with biopsy. PREOPERATIVE DIAGNOSIS: epigastric pain and heartburn. IV sedation per anesthesia. PROCEDURE: After informed consent was obtained, the patient was brought into the endoscopy unit. IV sedation was administered by Anesthesia under continuous monitoring. Initially the Olympus GIF-140 video endoscope was inserted into the mouth. Esophagus intubated without any difficulty. It was gradually advanced into the stomach and duodenum and carefully examined. The bulb and the second part of the duodenum appeared normal. The scope at this time was withdrawn to the stomach, adequately insufflated with air, and upon careful examination, mucosa of the antrum,had diffuse gastritis with erosions and biopsies were done from this area. Mucosa of the body, cardia and the fundus appeared normal. The scope was then withdrawn into the esophagus.small hiatal hernia noted. The GE junction was located at 39 cm from the incisors. there were linear erosions in the distal esophagus consistent with LA grade B reflux esophagitis. Rest of esophagus appeared normal and the patient tolerated the procedure well. IMPRESSION: 1. Antral erosive gastritis. 2. Small hiatal hernia and LA grade B reflux esophagitis RECOMMENDATIONS: The findings of this examination were discussed with the patient as well as his family. He was advised to follow with the biopsy results. Start omeprazole 20 mg daily and follow antireflux measures.
[2024-01-31 11:56] VITALS: BP 121/73; PULSE 63
== END 2024-01-31 12:03 | disposition home or self-care (01) ==
LOC: ORWHC2ENDO 09:19
PROVIDERS: ATTEND Internal Medicine Gastroenterology
DX: K31.9 Disease of stomach and duodenum, unspecified (principal); K21.00 Gastro-esophageal reflux disease with esophagitis, without bleeding; K44.9 Diaphragmatic hernia without obstruction or gangrene; Z79.899 Other long term (current) drug therapy; Z88.2 Allergy status to sulfonamides
CPT/HCPCS: 88305; 43239; J2001; J2704

== ENCOUNTER → 2024-02-08 | Outpatient (CLI) | payer OTHER ==
--- NOTE | 2024-02-08 16:48 | P.SLEEP ---
History of Present Illness DATE: 02/08/2024 CONSULTATION/NEW PATIENT EVALUATION HISTORY OF PRESENT ILLNESS/SLEEP-WAKE EVALUATION: 39-year-old gentleman had b een evaluated in the sleep center for possible obstructive sleep apnea hypopnea syndrome. SLEEP SCHEDULE: Usually sleep schedule patient works on swing shift, so sleep schedule may change. Usually from 1012 until 6 7 AM. FALLING ASLEEP: Sometimes patient has difficulties with falling asleep, has TV set in bedroom. DURING SLEEP: Patient sleeps on the side and stomach position with loud snoring and witnessed episodes of stop breathing during the sleep by his . Patient wakes up from sleep with gasping for air, panic attacks up to 2 times per night with episodes of nocturia. No history of hypnogogical hallucinations, sleep paralysis, or cataplexy. DURING THE DAY/WAKE STATE: In the morning patient wake up tired, has episodes of irritability, depression and anxiety. [place] sleepiness scale is increased to 11. Usually patient does not take naps. PAST MEDICAL HISTORY: Anxiety. PAST SURGICAL HISTORY: Cholecystectomy, appendectomy. MEDICATIONS: Paxil 10 mg once a day, hydroxyzine 10 mg as needed. SOCIAL HISTORY: Positive for smoking 25 pack years, continue to smoke, alcohol consumption none. FAMILY HISTORY: Hypertension, stroke hyperlipidemia. REVIEW OF SYSTEMS: Loud snoring, multiple awakenings from sleep, sleepiness during the day. No fevers. No double vision. No recent chest pain. No shortness of breath. No abdominal pain. No bleeding episodes. No blood in urine. No seizure episodes. PHYSICAL EXAMINATION: GENERAL: A pleasant patient without any distress. VITAL SIGNS: Please see below, weight 274 pounds, BMI 42.9. HEENT: PERRLA, EOMI. Evaluation of oropharynx showed tongue protrudes midline, low position of soft palate Mallampati 4. NECK: Supple. No JVD. Thyroid is not palpable. 19 inches in circumference. LUNGS: Clear to percussion and to auscultation. Good air exchange. No wheezing or rhonchi. HEART: S1, S2 regular. No murmurs, gallops or rubs. ABDOMEN: Soft and nontender. Bowel sounds are present. No organomegaly appreciated. EXTREMITIES: No clubbing or cyanosis. INTELLIGENCE INTERN: Awake, alert, and oriented x3. Cranial nerves 2 to 7 intact. There is no fasciculation or atrophy noted. No focal deficits observed. ASSESSMENT: 1. Loud snoring, witnessed episodes of stop breathing during sleep, extremely low position of soft palate Mallampati 4, wide neck, sleepiness. Obstructive sleep apnea hypopnea syndrome. 2. Obesity, BMI 42.9. 3. Anxiety. 4. Acid reflux. 5 status post cholecystectomy. 6 . Status post appendectomy. 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 PLAN: 1. Polysomnography for evaluation of patient's breathing during sleep. 2. Following plan after reading sleep study. 3. Preferable position during sleep on the side. 4. No driving if patient feels any sleepiness. Patient is aware of civil and criminal liability for unsafe driving. 5. Sleep hygiene with regular sleep time for at least 7.5-8 hours. 6. Watching and losing weight. Thank you very much for referring this patient for consultation. Sincerely, Neno Rosales MD, PhD, FAASM. Diplomat of [place] [employer], Sleep Medicine Board by [place] [employer] [place] [employer] Director of [facility] [place] Past Medical History Past Medical History: GERD/Reflux Additional Past Medical History / Comment(s): HAD ILEUS OCT 2023 History of Any Multi-Drug Resistant Organisms: None Reported Past Surgical History: Appendectomy, Cholecystectomy Past Anesthesia/Blood Transfusion Reactions: No Reported Reaction Past Psychological History: Anxiety Smoking Status: Current every day smoker Past Alcohol Use History: None Reported Additional Past Alcohol Use History / Comment(s): SMOKES 1 PPD SINCE AGE 17 Past Drug Use History: None Reported - Past Family History Mother Family Medical History: No Reported History Medications and Allergies Home Medications Medication Instructions Recorded Confirmed Type PARoxetine [Paxil] 10 mg PO HS 01/30/24 02/08/24 History hydrOXYzine HCL [Hydroxyzine HCl] 10 mg PO DAILY PRN 01/30/24 02/08/24 History Allergies Allergy/AdvReac Type Severity Reaction Status Date / Time No Known Allergies Allergy Verified 01/31/24 10:08 Physical Exam Vitals: Vital Signs Temp Pulse Resp BP Pulse Ox 02/08/24 16:21 97.7 F 74 16 125/82 95 Intake and Output 02/08/24 02/08/24 02/08/24 06:59 14:59 22:59 Other: Weight 124.284 kg Sleep Note - Sleep Data ESS Total: 11 - Sleep Note Sleep Note: Temperature: 97.7 F Pulse Rate: 74 Respiratory Rate: 16 Blood Pressure: 125/82 SpO2: 95 Height: 5 ft 7 in Weight: 124.284 kg BMI: Neck Circumference: 19
[2024-02-08 16:59] VITALS: BP 125/82; PULSE 74; RESP 16; TEMP 97.7
== END ==
LOC: 3 N SLEEP 15:47
PROVIDERS: ATTEND Internal Medicine
DX: G47.33 Obstructive sleep apnea (adult) (pediatric) (principal); G47.10 Hypersomnia, unspecified; E66.9 Obesity, unspecified; F41.9 Anxiety disorder, unspecified; K21.9 Gastro-esophageal reflux disease without esophagitis; F17.210 Nicotine dependence, cigarettes, uncomplicated; Z90.49 Acquired absence of other specified parts of digestive tract; Z98.890 Other specified postprocedural states; Z68.41 Body mass index [BMI] 40.0-44.9, adult
CPT/HCPCS: 99211

== ENCOUNTER 2024-02-19 13:00 | Outpatient (CLI) | payer OTHER ==
--- NOTE | 2024-02-21 15:44 | P.PCN ---
Description of Procedure: CLINICAL: A home sleep apnea test has been done for confirmation of possible obstructive sleep apnea-hypopnea syndrome. DESCRIPTION OF PROCEDURE: RESULTS: Recording time was 7 hours 22 minutes. Evaluation time was 7 hours 10 minutes. Evaluation time is sufficient for making conclusion about results of the test. Raw data of sleep recording has been reviewed and is adequate. Respiratory channel showed 244 apneas and 156 hypopneas. Apnea-hypopnea index was 55.8 per hour. Pulse rate in the range between minimum 54, maximum 131, average 76 by computer calculation. Lowest desaturation was 56%. IMPRESSION: 1. Severe Obstructive Sleep Apnea Hypopnea Syndrome with extremely severe oxygen desaturation. Please see other impressions from consultation. PLAN: 1. The patient should have PAP titration for correction of respiratory abnormallities during sleep. 2. Sleep hygiene with regular time in bed for at least 8 hours. 3. Watching and losing weight. 4. No driving if feeling any sleepiness. Thank you very much for allowing me to participate in the management of your patient. Sincerely, Neno Rosales MD, PhD, FAASM Diplomat of [place] [employer] Sleep Medicine Board of [place] [employer] Installer of [facility] [place]
== END 2024-02-20 14:21 | disposition home or self-care (01) ==
LOC: 3 N SLEEP 13:00
PROVIDERS: ATTEND Internal Medicine
DX: G47.33 Obstructive sleep apnea (adult) (pediatric) (principal); G47.36 Sleep related hypoventilation in conditions classified elsewhere; F17.210 Nicotine dependence, cigarettes, uncomplicated; E66.9 Obesity, unspecified; F41.9 Anxiety disorder, unspecified; J21.9 Acute bronchiolitis, unspecified; Z90.49 Acquired absence of other specified parts of digestive tract; Z98.890 Other specified postprocedural states; Z90.89 Acquired absence of other organs; Z68.41 Body mass index [BMI] 40.0-44.9, adult

== ENCOUNTER 2024-03-27 19:34 | Outpatient (CLI) | payer OTHER ==
--- NOTE | 2024-03-28 10:36 | P.PCN ---
Description of Procedure: CLINICAL: Titration with positive air pressure has been done for correction of respiratory abnormalities during sleep. DESCRIPTION OF PROCEDURE: The standard montage for clinical polysomnography included the electroencephalogram, the electrocardiogram, the mentalis surface electromyography and Lead II cardiography. The respiratory battery consisted of measurements of nasal /buccal air flow, pressure transducer measurements from the nose, thoracic and /or abdominal effort and intercostal surface electromyography. Video monitoring has been done to check for any parasomnia events. Nocturnal oxyhemoglobin saturations were obtained by finger oximetry. Step-fletcher titration with positive airway pressure was utilized to control respiratory events. Raw data of sleep recording has been reviewed and is adequate. RESULTS: Sleep efficiency was 91.5%. Latency to sleep onset was normal 16.0 minutes.]. Sleep architecture showed stage N1 was slightly short 4.3%, Delta sleep was normal 7.7%, REM sleep was increased to 33.1%, . Heart rate was minimum 66 BPM, maximum 75 BPM, average 70 BPM. EMG showed 0 periodic limb movements per hour. PAP titration have been done with CPAP up to the pressure 11 cm H2O. Patient had problems with CPAP, switched to BPAP. BPAP titrated up to 19/15 cm H2O. The best results were at the pressure 16/12 cm H2O. Apnea hypopnea index reduced to 4.5. IMPRESSION: 1. Severe obstructive sleep apnea hypopnea syndrome mostly on controle with BPAP treatment. 2. Normal periodic limb movements have been documented. Please see other impressions from consultation. PLAN: 1. The patient will have treatment with positive air pressure equipment with the level of pressure AutoBPAP with maximal inspiratory pressure 19, minimal expiratory pressure 6 and pressure support 4 cm H2O and should use it every night for the whole night. 2. Watching and losing weight. 3. Sleep hygiene with regular time in bed for at least 8 hours. 4. No driving if feeling any sleepiness. 5. I will see the patient for follow up visit to explain the results of the test, recommendations, check compliance with treatment and make any necessary adjustment related to mask fitting, pressure and humidification. Thank you very much for allowing me to participate in the management of your patient. Sincerely, Neno Rosales MD, PhD, FAASM Diplomat of [place] [employer] Sleep Medicine Board of [place] [employer] Media [employer] Manager of [facility] [place]
== END 2024-03-28 05:30 | disposition home or self-care (01) ==
LOC: 3 N SLEEP 19:34
PROVIDERS: ATTEND Internal Medicine
DX: G47.33 Obstructive sleep apnea (adult) (pediatric) (principal); G47.61 Periodic limb movement disorder; F17.200 Nicotine dependence, unspecified, uncomplicated
CPT/HCPCS: 95811

== ENCOUNTER 2024-05-19 11:17 | Emergency (ER) | payer OTHER ==
[2024-05-19 11:21] VITALS: RESP 18
--- NOTE | 2024-05-19 11:42 | ED ---
ENT HPI - General Chief complaint: Dental/Oral Stated complaint: Dental issue Time Seen by Provider: 05/19/24 11:40 Source: patient, RN notes reviewed Mode of arrival: ambulatory Limitations: no limitations - History of Present Illness Initial comments: 39-year-old male presented to ER with a chief complaint of right lower sided dental pain. Patient states this has been intermittent for the past week. He states last night it woke him out of his sleep due to the pain. Patient states he has followed up with a dentist approximately 6 months ago and had 6 teeth pulled. He states he has multiple fractured teeth on that side. He denies any drainage on that side. States extremely sensitive to temperature and touch. He denies any fevers or chills. He does report sweats due to the pain. Denies any other complaints. - Related Data Home Medications Medication Instructions Recorded Confirmed PARoxetine [Paxil] 10 mg PO HS 01/30/24 02/08/24 hydrOXYzine HCL [Hydroxyzine HCl] 10 mg PO DAILY PRN 01/30/24 02/08/24 Previous Rx's Medication Instructions Recorded Amoxic-Pot Clav 875-125Mg 1 tab PO Q12HR #20 tab 05/19/24 [Augmentin 875-125] Ibuprofen [Motrin] 800 mg PO Q6HR #30 tab 05/19/24 Allergies Allergy/AdvReac Type Severity Reaction Status Date / Time No Known Allergies Allergy Verified 05/19/24 11:21 Review of Systems ROS Statement: Those systems with pertinent positive or pertinent negative responses have been documented in the HPI. ROS Other: All systems not noted in ROS Statement are negative. Past Medical History Past Medical History: GERD/Reflux Additional Past Medical History / Comment(s): HAD ILEUS OCT 2023 History of Any Multi-Drug Resistant Organisms: None Reported Past Surgical History: Appendectomy, Cholecystectomy Past Anesthesia/Blood Transfusion Reactions: No Reported Reaction Past Psychological History: Anxiety Smoking Status: Current every day smoker Past Alcohol Use History: None Reported Past Drug Use History: None Reported - Past Family History Mother Family Medical History: No Reported History General Exam Limitations: no limitations General appearance: alert, in no apparent distress ENT exam: Present: other (Multiple dental caries. There is receding gumline with dental caries on the left lower jaw. No drainable abscess. No tongue or lower jaw edema. Oropharynx patent.) Neck exam: Present: normal inspection. Absent: tenderness, meningismus, lymphadenopathy Respiratory exam: Present: normal lung sounds bilaterally. Absent: respiratory distress, wheezes, rales, rhonchi, stridor Cardiovascular Exam: Present: regular rate, normal rhythm, normal heart sounds. Absent: systolic murmur, diastolic murmur, rubs, gallop, clicks Skin exam: Present: warm, dry, intact, normal color. Absent: rash Course Vital Signs 05/19/24 05/19/24 11:19 11:59 Temperature 97.7 F 98.1 F Pulse Rate 65 72 Respiratory 18 18 Rate Blood Pressure 156/91 146/86 O2 Sat by Pulse 95 99 Oximetry Medical Decision Making - Medical Decision Making Was pt. sent in by a medical professional or institution (ELISABET Wiggins, PRODUCTION LINE OPERATOR, urgent care, hospital, or correction...) When possible be specific @ -No Did you speak to anyone other than the patient for history (EMS, parent, family, police, friend...)? What history was obtained from this source @ -No Did you review nursing and triage notes (agree or disagree)? Why? @ -I reviewed and agree with nursing and triage notes Were old charts reviewed (outside hosp., previous admission, EMS record, old EKG, old radiological studies, urgent care reports/EKG's, correction records)? Report findings @ -No old charts were reviewed Differential Diagnosis (chest pain, altered mental status, abdominal pain women, abdominal pain men, vaginal bleeding, weakness, fever, dyspnea, syncope, h eadache, dizziness, GI bleed, back pain, seizure, CVA, palpatations, mental health, musculoskeletal)? @ -Dental caries, fractured tooth, dental abscess, David angina This is not meant to be all-inclusive EKG interpreted by me (3pts min.). @ -None X-rays interpreted by me (1pt min.). @ -None done CT interpreted by me (1pt min.). @ -None done U/S interpreted by me (1pt. min.). @ -None done What testing was considered but not performed or refused? (CT, X-rays, U/S, labs)? Why? @ -None What meds were considered but not given or refused? Why? @ -None Did you discuss the management of the patient with other professionals (professionals i.e. , PA, PRODUCTION LINE OPERATOR, lab, RT, psych nurse, psychosocial rehabilitation counselor, neuropsychology service director, teacher, traffic control officer, case packer and sealer)? Give summary @ -No Was smoking cessation discussed for >3mins.? @ -No Was critical care preformed (if so, how long)? @ -No Were there social determinants of health that impacted care today? How? (Homelessness, low income, unemployed, alcoholism, drug addiction, transportation, low edu. Level, literacy, decrease access to med. care, custodial, rehab)? @ -No Was there de-escalation of care discussed even if they declined (Discuss DNR or withdrawal of care, Hospice)? DNR status @ -No What co-morbidities impacted this encounter? (DM, HTN, Smoking, COPD, CAD, Cancer, CVA, ARF, Chemo, Hep., AIDS, mental health diagnosis, sleep apnea, morbid obesity)? @ -None Was patient admitted / discharged? Hospital course, mention meds given and route, prescriptions, significant lab abnormalities, going to OR and other pertinent info. @ -Discharge. 39-year-old male presented to the ER with a chief complaint of dental pain. History and physical exam completed. Vitals stable. Patient in no signs of acute distress and nontoxic-appearing. Exam remarkable for multiple dental caries. There is a receding gumline in the left lower jaw with dental caries present. No drainable abscess. Patient will be started on Augmentin. Patient did receive a Tylenol 3 starter pack for pain control in the ER. Advise close follow-up with a dentist. Strict return parameters discussed. Patient discharged stable condition with follow-up to dentist, referral given. Patient verbally expressed understanding and agreeable care plan. Case discussed with ED attending, Dr. Umana. Undiagnosed new problem with uncertain prognosis? @ -No Drug Therapy requiring intensive monitoring for toxicity (Heparin, Nitro, Insulin, Cardizem)? @ -No Were any procedures done? @ -No Diagnosis/symptom? @ -Dental pain Acute, or Chronic, or Acute on Chronic? @ -Acute Uncomplicated (without systemic symptoms) or Complicated (systemic symptoms)? @ -Uncomplicated Side effects of treatment? @ -No Exacerbation, Progression, or Severe Exacerbation? @ -No Poses a threat to life or bodily function? How? (Chest pain, [place], [place], pneumonia, PE, COPD, DKA, ARF, appy, cholecystitis, CVA, Diverticulitis, Homicidal, Suicidal, threat to staff... and all critical care pts) @ -No Disposition Clinical Impression: Dental caries, Fracture, tooth Disposition: HOME SELF-CARE Condition: Stable Instructions (If sedation given, give patient instructions): Toothache (ED) Additional Instructions: Complete full course of antibiotics. Alternate ibuprofen and Tylenol 3s for pain control. Follow-up with your dentist in the next 1-2 days. Return to the ER for any new or worsening symptoms. Prescriptions: Amoxic-Pot Clav 875-125Mg [Augmentin 875-125] 1 tab PO Q12HR #20 tab Ibuprofen [Motrin] 800 mg PO Q6HR #30 tab Is patient prescribed a controlled substance at d/c from ED?: No Referrals: Jr Garza DO [Primary Care Provider] - 1-2 days Time of Disposition: 11:44
[2024-05-19] MEDS: ACET/COD 300 MG/30 MG STARTER PACK 6 TAB BTL PO STA (11:56)
[2024-05-19] MEDS: AMOXIC-POT CLAV 875-125MG 1 EACH TAB PO STA (11:57)
[2024-05-19 12:01] VITALS: BP 146/86; PULSE 72; TEMP 98.1
== END 2024-05-19 12:00 | disposition home or self-care (01) ==
LOC: EC 11:17
DX: K03.81 Cracked tooth (principal); K02.9 Dental caries, unspecified; F17.200 Nicotine dependence, unspecified, uncomplicated
CPT/HCPCS: 99282

== ENCOUNTER → 2024-09-11 | Outpatient (CLI) | payer OTHER ==
[2024-09-11 16:14] VITALS: BP 125/75; PULSE 74; RESP 16; TEMP 97.7
--- NOTE | 2024-09-11 16:45 | P.PROGSL ---
Subjective DATE: [] FOLLOW UP VISIT. Patient with obstructive sleep apnea hypopnea syndrome return to sleep center for follow-up visit. Recently patient had sleep study which documented obstructive sleep apnea hypopnea syndrome. Patient was initiated on PAP therapy and today is first visit after treatment was started. Patient was able to use PAP equipment every night for the whole night. The patient does not have significant problems with the mask, PAP pressure and humidification. Grant sleepiness scale is 6, which is normal. I checked information from PAP unit. PAP unit pressure maximal inspiratory pressure 19, minimal expiratory pressure 6, pressure support 4, average pressure 16.3/12.3 cm H2O. Usage is 97% and 90% for more then 4 hours, average 6.5 hours per night. Leak is 32.1 l/m, which is in acceptable range. Apnea Hypopnea Index is 2.3, which is normal. MEDICATIONS:1. Paxil 10 mg once a day 2. Hydroxyzine 10 mg as needed During physical exam: GENERAL: A pleasant patient without any distress. VITAL SIGNS: Please see below, weight is 291 pounds. HEENT: PERRLA, EOMI.low position of soft palate, Mallapati 4 . NECK: Supple. No JVD. LUNGS: Clear to percussion and to auscultation. Good air exchange. No wheezing or rhonchi. HEART: S1, S2 regular. ABDOMEN: Soft and nontender.[] EXTREMITIES: No clubbing or cyanosis. WOOD PANEL INSPECTOR: Awake, alert, and oriented x3. No focal deficit. Impressions: 1. Obstructive sleep apnea-hypopnea syndrome. Patient demonstrated great co mpliance with treatment, benefiting from treatment. 2. Obesity. 3. Acid reflux. 4. History of anxiety. 5. Status post cholecystectomy. 6. Status post appendectomy. 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 Plan: 1. Continue using PAP equipment every night for the whole night. 2. To change air filter at least 1-2 times per month. 3. PAP unit should stay lower then position of the head. 4. Advised patient to remove all remaining water from humidifier canister daily and make it dry after each usage. Refill canister with fresh distilled water before each usage. 5. Sleep hygiene with regular time in bed for at least 8 hours. 6. Precautions related to driving. No driving if feel any sleepiness. Patient is aware about [place] and criminal liability for unsafe driving. 7. I will maintain prescription for PAP supplies including mask, tube, filters. 8. Follow up visit in 8 months or earlier if patient has any problems. 9. Watching and losing weight. Thank you very much for allowing me to participate in the management of your patient. Neno Rosales MD, PhD, FAASM. Diplomat of [place] [employer], Sleep Medicine Board by [place] [employer] Relief Manager of [facility] [place] Objective - Vital Signs Vital Signs: Vital Signs Temp 97.7 F 09/11/24 16:13 Pulse 74 09/11/24 16:13 Resp 16 09/11/24 16:13 BP 125/75 09/11/24 16:13 Pulse Ox 98 09/11/24 16:13 FiO2 Intake & Output 09/10/24 09/11/24 09/11/24 18:59 06:59 18:59 Weight 131.995 kg Home Medications: Home Medications Medication Instructions Recorded Confirmed Type PARoxetine [Paxil] 10 mg PO HS 01/30/24 02/08/24 History hydrOXYzine HCL [Hydroxyzine HCl] 10 mg PO DAILY PRN 01/30/24 02/08/24 History Amoxic-Pot Clav 875-125Mg 1 tab PO Q12HR #20 tab 05/19/24 Rx [Augmentin 875-125] Ibuprofen [Motrin] 800 mg PO Q6HR #30 tab 05/19/24 Rx
== END ==
LOC: 3 N SLEEP 15:56
PROVIDERS: ATTEND Internal Medicine
DX: G47.33 Obstructive sleep apnea (adult) (pediatric) (principal); E66.9 Obesity, unspecified; K21.9 Gastro-esophageal reflux disease without esophagitis; F41.9 Anxiety disorder, unspecified; F17.200 Nicotine dependence, unspecified, uncomplicated; Z90.49 Acquired absence of other specified parts of digestive tract; Z98.890 Other specified postprocedural states; Z99.89 Dependence on other enabling machines and devices
CPT/HCPCS: 99212

== ENCOUNTER 2025-05-25 17:15 | Emergency (ER) | payer BC ==
--- NOTE | 2025-05-25 18:10 | ED ---
ENT HPI - General Chief complaint: ENT Stated complaint: Right ear pain Time Seen by Provider: 05/25/25 17:49 Source: patient, RN notes reviewed, old records reviewed Mode of arrival: ambulatory Limitations: no limitations - History of Present Illness Initial comments: This is a 40 male to ER for right-sided ear pain. Patient developed worsening ear pain for 2 days after swelling, patient noted the pain in his right ear is increasing especially moves or touches his ear no headaches no fevers, patient did attempt to use a Q-tip to help with the symptoms, symptoms are persistent no bleeding noted or discharge MD complaint: ear pain (Right-sided ear pain) -: days(s) (2) Location: R ear Severity: moderate Severity scale (1-10): 4 Quality: stabbing, aching Consistency: constant Improves with: none Worsens with: none Context- Ear: recent swimming Associated Symptoms: tinnitus, hearing loss - Related Data Home Medications Medication Instructions Recorded Confirmed PARoxetine [Paxil] 10 mg PO HS 01/30/24 02/08/24 hydrOXYzine HCL [Hydroxyzine HCl] 10 mg PO DAILY PRN 01/30/24 02/08/24 Previous Rx's Medication Instructions Recorded Amoxic-Pot Clav 875-125Mg 1 tab PO Q12HR #20 tab 05/19/24 [Augmentin 875-125] Ibuprofen [Motrin] 800 mg PO Q6HR #30 tab 05/19/24 Allergies Allergy/AdvReac Type Severity Reaction Status Date / Time No Known Allergies Allergy Verified 05/25/25 17:19 Review of Systems ROS Statement: Those systems with pertinent positive or pertinent negative responses have been documented in the HPI. ROS Other: All systems not noted in ROS Statement are negative. Past Medical History Past Medical History: GERD/Reflux Additional Past Medical History / Comment(s): HAD ILEUS OCT 2023 History of Any Multi-Drug Resistant Organisms: None Reported Past Surgical History: Appendectomy, Cholecystectomy Past Anesthesia/Blood Transfusion Reactions: No Reported Reaction Past Psychological History: Anxiety Smoking Status: Current every day smoker Past Alcohol Use History: None Reported Past Drug Use History: None Reported - Past Family History Mother Family Medical History: No Reported History General Exam Limitations: no limitations General appearance: alert, in no apparent distress Head exam: Present: atraumatic, normocephalic, normal inspection Eye exam: Present: normal appearance, PERRL, EOMI. Absent: scleral icterus, conjunctival injection, periorbital swelling ENT exam: Present: normal exam, mucous membranes moist Neck exam: Present: normal inspection. Absent: tenderness, meningismus, lymphadenopathy Respiratory exam: Present: normal lung sounds bilaterally. Absent: respiratory distress, wheezes, rales, rhonchi, stridor Cardiovascular Exam: Present: regular rate, normal rhythm, normal heart sounds. Absent: systolic murmur, diastolic murmur, rubs, gallop, clicks GI/Abdominal exam: Present: soft, normal bowel sounds. Absent: distended, tenderness, guarding, rebound, rigid Extremities exam: Present: normal inspection, full ROM, normal capillary refill. Absent: tenderness, pedal edema, joint swelling, calf tenderness Back exam: Present: normal inspection Neurological exam: Present: alert, oriented X3, CN II-XII intact Psychiatric exam: Present: normal affect, normal mood Skin exam: Present: warm, dry, intact, normal color. Absent: rash Course Vital Signs 05/25/25 17:17 Temperature 98.4 F Pulse Rate 75 Respiratory 20 Rate Blood Pressure 130/81 O2 Sat by Pulse 99 Oximetry - Reevaluation(s) Reevaluation #1: 05/25/25 18:13 Medical records reviewed Reevaluation #2: 05/25/25 18:13 Patient symptoms unchanged Reevaluation #3: 05/25/25 18:13 Results means answered Reevaluation #4: Was pt. sent in by a medical professional or institution (, PA, PRACTICE PHYSICIAN, urgent care, hospital, or fci...) When possible be specific @ -no Did you speak to anyone other than the patient for history (EMS, parent, family, police, friend...)? What history was obtained from this source @ -no Did you review nursing and triage notes (agree or disagree)? Why? @ -agree Are old charts reviewed (outside hosp., previous admission, EMS record, old EKG, old radiological studies, urgent care reports/EKG's, fci records)? Report findings @ -yes Differential Diagnosis (chest pain, altered mental status, abdominal pain women, abdominal pain men, vaginal bleeding, weakness, fever, dyspnea, syncope, headache, dizziness, GI bleed, back pain, seizure, CVA, palpatations, mental health, musculoskeletal)? @ -prior EKG interpreted by me (3pts min.). @ -yes X-rays interpreted by me (1pt min.). @ -yes negative for acute disease CT interpreted by me (1pt min.). @ -no U/S interpreted by me (1pt. min.). @ -no What testing was considered but not performed or refused? (CT, X-rays, U/S, labs)? Why? @ -none What meds were considered but not given or refused? Why? @ -none Did you discuss the management of the patient with other professionals (professionals i.e. , PA, PRACTICE PHYSICIAN, lab, RT, psych nurse, social and human services assistant, executive relations specialist, teacher, commanding officer traffic division, case therapist)? Give summary @ -no Was smoking cessation discussed for >3mins.? @ -no Was critical care preformed (if so, how long)? @ -no Were there social determinants of health that impacted care today? How? (Homelessness, low income, unemployed, alcoholism, drug addiction, transportation, low edu. Level, literacy, decrease access to med. care, snf, rehab)? @ -none Was there de-escalation of care discussed even if they declined (Discuss DNR or withdrawal of care, Hospice)? DNR status @ -no What co-morbidities impacted this encounter? (DM, HTN, Smoking, COPD, CAD, Cancer, CVA, ARF, Chemo, Hep., AIDS, mental health diagnosis, sleep apnea, morbid obesity)? @ -none Was patient admitted / discharged? Hospital course, mention meds given and route, prescriptions, significant lab abnormalities, going to OR and other pertinent info. @ - Undiagnosed new problem with uncertain prognosis? @ -no Drug Therapy requiring intensive monitoring for toxicity (Heparin, Nitro, Insulin, Cardizem)? @ -no Were any procedures done? @ -no Diagnosis/symptom? @ - Acute, or Chronic, or Acute on Chronic? @ -Acute Uncomplicated (without systemic symptoms) or Complicated (systemic symptoms)? @ -Complicated Side effects of treatment? @ -no Exacerbation, Progression, or Severe Exacerbation? @ -exacerbation Poses a threat to life or bodily function? How? (Chest pain, [place], [place], pneumonia, PE, COPD, DKA, ARF, appy, cholecystitis, CVA, Diverticulitis, Homicidal, Suicidal, threat to staff... and all critical care pts) @ -yes Medical Decision Making - Medical Decision Making 40 male right otitis externa, given eardrops here in the ER patient can be discharged Disposition Clinical Impression: Acute swimmer's ear, Otitis externa, Right otitis externa Disposition: HOME SELF-CARE Condition: Good Instructions (If sedation given, give patient instructions): Swimmer's Ear (ED) Is patient prescribed a controlled substance at d/c from ED?: No Referrals: Jr Garza DO [Primary Care Provider] - 1-2 days Time of Disposition: 18:00
[2025-05-25] MEDS: AMOXIC-POT CLAV 875-125MG 1 EACH TAB PO STA (18:27)
[2025-05-25] MEDS: CIPROFLOXACIN-DEXAMETH 0.3-0.1% DROPS 7.5 ML BTL RIGHT EAR STA (18:29)
[2025-05-25 18:33] VITALS: BP 115/64; PULSE 65; RESP 16; TEMP 98
== END 2025-05-25 18:33 | disposition home or self-care (01) ==
LOC: EC 17:15
DX: H60.331 Swimmer's ear, right ear (principal); H60.91 Unspecified otitis externa, right ear; F17.200 Nicotine dependence, unspecified, uncomplicated
CPT/HCPCS: 99282